=== PATIENT | female | born 1970 | race Caucasian/White ===

== ENCOUNTER → 2016-11-03 | Outpatient (REF) | payer OTHER ==
[~2016-11-03] MED LIST: ALBU17IN2 INH; HYDR-3713 PO; IBUP800T23 PO; PANT40TA2 PO; [UNRECOGNIZED DRUG - OTHER] PO
== END ==
LOC: M LAB REF 17:04
PROVIDERS: ATTEND Nurse Practitioner Family
DX: R30.0 Dysuria (principal)

== ENCOUNTER → 2016-12-26 | Outpatient (REF) | payer OTHER | LOC: M SMT 16:22 | PROVIDERS: ATTEND Nurse Practitioner Women's Health | DX: N39.0 Urinary tract infection, site not specified (principal) ==

== ENCOUNTER → 2016-12-28 | Outpatient (CLI) | payer OTHER ==
--- NOTE | 2016-12-28 11:37 | REP ---
Clinical: Recurrent urinary tract infection. Technique: Real time menchaca scale ultrasound examination using curved array transducer. Findings: The bilateral kidneys are normal in contour, size, echogenicity and reniform shape without hydronephrosis, nephrolithiasis, cystic or renal mass lesion. No perinephric fluid collections are identified. Right kidney measures 13.1 x 4.4 x 4.2 cm. Left kidney measures 11.7 x 6.2 x 5.4 cm with suggestions for extrarenal pelvis. The bladder is normal in appearance and bilateral ureteral jets are identified. Prevoid bladder measures 15.8 x 11.4 x 10.2 cm (950 ml). Postvoid bladder measures 9.5 x 8.5 x 5.2 cm (224 ml). Postvoid residual equals 24%. Impression: Normal bilateral kidneys. Increased postvoid residual volume to the bladder may warrant followup. Signed by Mauro Maldonado MD 12/28/2016 11:28 A
== END ==
LOC: M SMT 09:59
PROVIDERS: ATTEND Nurse Practitioner Women's Health
DX: N39.0 Urinary tract infection, site not specified (principal)

== ENCOUNTER → 2017-01-03 | Outpatient (REF) | payer OTHER ==
[2017-01-03 13:32] LABS: ANION GAP 10 MEQ/L (8-16); BLOOD UREA NITROGEN 19 MG/DL (7-18); CALCIUM LEVEL 9.7 MG/DL (8.5-10.1); CARBON DIOXIDE LEVEL 23 MEQ/L (21-32); CHLORIDE LEVEL 106 MEQ/L (98-107); CREATININE FOR GFR 0.96 MG/DL (0.55-1.02); GLOMERULAR FILTRATION RATE > 60.0 (>58); GLUCOSE, FASTING 100 MG/DL (70-105); POTASSIUM SERUM 4.2 MEQ/L (3.5-5.1); SODIUM LEVEL 139 MEQ/L (136-145)
== END ==
LOC: M LAB REF 12:04
PROVIDERS: ATTEND Nurse Practitioner Family
DX: E11.3293 Type 2 diabetes mellitus with mild nonproliferative diabetic retinopathy without macular edema, bilateral (principal); B02.29 Other postherpetic nervous system involvement

== ENCOUNTER → 2017-04-13 | Outpatient (REF) | payer OTHER ==
[~2017-04-13] MED LIST changes: +HYDR-3716 PO; +IBUP1TAB7 PO; -IBUP800T23 PO; +NORCOTAB PO
== END ==
LOC: M LAB REF 12:39
PROVIDERS: ATTEND Nurse Practitioner Family
DX: R35.0 Frequency of micturition (principal)

== ENCOUNTER 2017-06-25 13:08 | Emergency (ER) | payer OTHER ==
[~2017-06-25] VITALS: Ht 160 cm; Wt 195.0 kg
[~2017-06-25 13:08] MED LIST changes: -HYDR-3716 PO; -NORCOTAB PO
[2017-06-25] MEDS ORDERED: NORCO, ANEXSIA 5/325MG TABLET (HYDROcodone/ACETAMINOPHEN) PO ONE (14:30)
--- NOTE | 2017-06-25 14:50 | REP ---
RIGHT ANKLE SERIES: Four views of the right ankle are performed. There is a fracture of the anterior aspect of the calcaneus. The other visualized osseous structures appear intact. There is posterior calcaneal spurring. Ankle mortise is anatomic. IMPRESSION: Fracture anterior calcaneus. Signed by Ulises Chopra MD 06/25/2017 07:18 P
--- NOTE | 2017-06-25 14:51 | REP ---
RIGHT FOOT: Two views of the right foot are performed. There is a fracture of the anterior calcaneus. No other acute fracture or dislocation is seen of the visualized osseous structures. IMPRESSION: Fracture anterior aspect calcaneus. Signed by Ulises Chopra MD 06/25/2017 07:19 P
[2017-06-25] MEDS ORDERED: MORPHINE 10 MG/ML 1ML VIAL IM ONE (16:00)
[2017-06-25] MEDS ORDERED: NORCOTAB PO (16:22)
[2017-06-25 16:35] VITALS: BP 116/78
[2017-06-25] MEDS ORDERED: HYDR-3716 PO (16:36)
== END 2017-06-25 16:36 | disposition home or self-care (01) ==
LOC: M ED 13:08
DX: S92.024A Nondisplaced fracture of anterior process of right calcaneus, initial encounter for closed fracture (principal); X50.1XXA Overexertion from prolonged static or awkward postures, initial encounter; Y92.099 Unspecified place in other non-institutional residence as the place of occurrence of the external cause; Y93.9 Activity, unspecified; Y99.9 Unspecified external cause status; M54.9 Dorsalgia, unspecified; Z79.899 Other long term (current) drug therapy; Z91.030 Bee allergy status; Z88.0 Allergy status to penicillin

== ENCOUNTER → 2017-07-05 | Outpatient (CLI) | payer OTHER ==
[~2017-07-05] MED LIST changes: +HYDR-3716 PO; +NORCOTAB PO
--- NOTE | 2017-07-05 11:35 | REP ---
CT study of the right foot without contrast: History: Calcaneal fracture. Comparison foot and ankle radiographs are from June 25, 2017. Technique: Helical scanning is acquired. 2 mm contiguous axial images are generated. Coronal and sagittal multiplanar re-formation images are generated. CT findings: There is a severely comminuted, fracture principally occupying the anterior portion of the calcaneus. There is diastases of the subtalar joint due to impaction and fracture fragment displacement. The posterior calcaneus is essentially intact with a large Achilles calcaneal spur noted. There is a tiny bone fragment in the joint space between the cuboid and the anterior calcaneus. There is an associated chip fracture of the inferolateral aspect of the talus as well. The tibial plafond and talar dome are intact. No other talar fracture is seen. The fibula and tibia are intact at the ankle. No metatarsal fracture is seen. There is a bone island in the distal end of the first metatarsal. Impression: Severely comminuted impacted fracture of the anterior aspect of the calcaneus. There is a chip fracture of the inferolateral aspect of the talus. A fracture fragment is seen in the calcaneal cuboid joint space. Signed by Silvino Martinez MD 07/05/2017 01:25 P
== END ==
LOC: M RAD 09:47
PROVIDERS: ATTEND Orthopaedic Surgery
DX: S92.014A Nondisplaced fracture of body of right calcaneus, initial encounter for closed fracture (principal); X58.XXXA Exposure to other specified factors, initial encounter; Y92.89 Other specified places as the place of occurrence of the external cause; Y99.9 Unspecified external cause status; Y93.9 Activity, unspecified

== ENCOUNTER → 2017-11-07 | Outpatient (CLI) | payer OTHER | LOC: M RAD 13:57 | DX: M79.661 Pain in right lower leg (principal) | CPT/HCPCS: 93971 ==

== ENCOUNTER → 2017-11-13 | Outpatient (REF) | payer OTHER ==
[2017-11-13 14:27] LABS: APPEARANCE, URINE HAZY (CLEAR); BACTERIA, URINE AUTO 1+ (NEGATIVE); BILIRUBIN, URINE AUTO NEGATIVE (NEGATIVE); BLOOD, URINE BLOOD 1+ (NEGATIVE); COLOR, URINE YELLOW (YELLOW); GLUCOSE, URINE (UA) AUTO NEGATIVE (NEGATIVE); KETONE, URINE AUTO NEGATIVE (NEGATIVE); LEUKOCYTE ESTERASE, URINE AUTO 2+ (NEGATIVE); MUCUS, URINE SMALL (NEGATIVE); NITRITE, URINE AUTO NEGATIVE (NEGATIVE); PROTEIN, URINE AUTO NEGATIVE (NEGATIVE); RBC, URINE AUTO 1 /HPF (0-3); SPECIFIC GRAVITY URINE AUTO 1.013 (1.002-1.035); SQUAMOUS EPITHELIAL CELL UR AU 4 /HPF (0-6); UROBILINOGEN, URINE AUTO 0.2 mg/dL (0.0-2.0); WBC, URINE AUTO 8 /HPF (0-3)
== END ==
LOC: M SMT 13:20
DX: R39.15 Urgency of urination (principal)
CPT/HCPCS: 81001

== ENCOUNTER → 2018-02-28 | Outpatient (CLI) | payer MEDICAID ==
[~2018-02-28] MED LIST changes: -ALBU17IN2 INH; +CONRAY-43 43% 50ML VIAL (Q9960) As Ordered; -HYDR-3713 PO; -HYDR-3716 PO; -IBUP1TAB7 PO; +LIDOCAINE 1% MDV 20ML VIAL As Ordered; -NORCOTAB PO; -PANT40TA2 PO; +TRIAMCINOLONE ACETONIDE SUSP 40 MG/ML VIAL (J3301) As Ordered; -[UNRECOGNIZED DRUG - OTHER] PO
== END ==
LOC: M RADPRO 09:49
DX: M25.371 Other instability, right ankle (principal)
CPT/HCPCS: 20605

== ENCOUNTER → 2018-03-29 | Outpatient (CLI) | payer OTHER, MEDICAID | LOC: M PAIN 10:15 | DX: M53.3 Sacrococcygeal disorders, not elsewhere classified (principal); G89.29 Other chronic pain; J45.909 Unspecified asthma, uncomplicated; E11.3599 Type 2 diabetes mellitus with proliferative diabetic retinopathy without macular edema, unspecified eye; G43.909 Migraine, unspecified, not intractable, without status migrainosus; I10 Essential (primary) hypertension; K76.0 Fatty (change of) liver, not elsewhere classified; Z79.899 Other long term (current) drug therapy; Z88.0 Allergy status to penicillin; Z88.8 Allergy status to other drugs, medicaments and biological substances; Z91.030 Bee allergy status; Z87.891 Personal history of nicotine dependence | CPT/HCPCS: G0463 ==

== ENCOUNTER 2018-04-02 16:02 | Emergency (ER) | payer OTHER, MEDICAID ==
[2018-04-02 16:43] LABS: BASO # 0.1 10^3/uL (0.0-0.2); BASO % 0.5 % (0.0-1.0); EOS # 0.1 10^3/uL (0.0-0.50); EOS % 1.3 % (0.0-3.0); HEMOGLOBIN 14.8 g/dl (12.0-15.5); IMMATURE GRANULOCYTE % 0.4 % (0-3.0); LYMPH # 2.8 10^3/uL (1.5-4.5); LYMPH % 28.7 % (24.0-44.0); MEAN CORPUSCULAR HEMOGLOBIN 30.7 pg (27.0-33.0); MEAN CORPUSCULAR HGB CONC 34.4 g/dl (32.0-36.5); MEAN CORPUSCULAR VOLUME 89.2 fl (80.0-96.0); MONO # 0.7 10^3/uL (0.0-0.8); MONO % 6.7 % (0.0-5.0); NEUTROPHILS % 62.4 % (36.0-66.0); PLATELET COUNT, AUTOMATED 304 10^3/uL (150-450); RED BLOOD COUNT 4.82 10^6/uL (4.00-5.40); RED CELL DISTRIBUTION WIDTH 13.2 % (11.5-14.5); WHITE BLOOD COUNT 9.7 10^3/uL (4.0-10.0)
[2018-04-02 17:39] LABS: ANION GAP 10 MEQ/L (8-16); BLOOD UREA NITROGEN 14 MG/DL (7-18); CALCIUM LEVEL 9.4 MG/DL (8.5-10.1); CARBON DIOXIDE LEVEL 24 MEQ/L (21-32); CHLORIDE LEVEL 107 MEQ/L (98-107); CK-MB VALUE MASS < 1.0 NG/ML (<3.6); CPK CREATINE PHOSPHOKINASE 57 U/L (26-192); GLOMERULAR FILTRATION RATE > 60.0 (>58); GLUCOSE, FASTING 94 MG/DL (70-100); MB/CK RELATIVE INDEX 1.75 (< OR =4); POTASSIUM SERUM 3.7 MEQ/L (3.5-5.1); SODIUM LEVEL 141 MEQ/L (136-145); TROPONIN I < 0.02 NG/ML (< 0.10)
[2018-04-02] MEDS: NS 1,000 ML IV (17:46)
[2018-04-02] MEDS: diphenhydrAMINE INJ 50MG/ML VIAL (J1200) IV (17:46)
[2018-04-02] MEDS: MORPHINE 4 MG/ML 1ML VIAL/SYRINGE (J2270) IV (17:46)
[2018-04-02 17:55] LABS: D-DIMER QUANT < 270.0 ng/ml (<500)
== END 2018-04-02 19:40 | disposition home or self-care (01) ==
LOC: M ED 16:02
DX: R07.89 Other chest pain (principal); R06.02 Shortness of breath; M54.9 Dorsalgia, unspecified; J45.909 Unspecified asthma, uncomplicated; K21.9 Gastro-esophageal reflux disease without esophagitis; Z88.0 Allergy status to penicillin; Z88.8 Allergy status to other drugs, medicaments and biological substances; Z79.899 Other long term (current) drug therapy
CPT/HCPCS: J2270

== ENCOUNTER → 2018-04-17 | Outpatient (CLI) | payer OTHER, MEDICAID | LOC: M PAIN 14:00 | DX: M53.3 Sacrococcygeal disorders, not elsewhere classified (principal); J45.909 Unspecified asthma, uncomplicated; Z79.891 Long term (current) use of opiate analgesic; Z79.899 Other long term (current) drug therapy; Z91.030 Bee allergy status; Z88.8 Allergy status to other drugs, medicaments and biological substances; Z88.0 Allergy status to penicillin; Z90.710 Acquired absence of both cervix and uterus; Z87.891 Personal history of nicotine dependence | CPT/HCPCS: G0463 ==

== ENCOUNTER → 2018-05-14 | Outpatient (CLI) | payer OTHER, MEDICAID | LOC: M PAIN 14:45 | DX: M46.1 Sacroiliitis, not elsewhere classified (principal); G89.29 Other chronic pain; E11.3299 Type 2 diabetes mellitus with mild nonproliferative diabetic retinopathy without macular edema, unspecified eye; J45.909 Unspecified asthma, uncomplicated; G43.909 Migraine, unspecified, not intractable, without status migrainosus; I10 Essential (primary) hypertension; K76.9 Liver disease, unspecified; E66.01 Morbid (severe) obesity due to excess calories; Z68.35 Body mass index [BMI] 35.0-35.9, adult; Z79.899 Other long term (current) drug therapy; Z88.0 Allergy status to penicillin; Z88.8 Allergy status to other drugs, medicaments and biological substances; Z91.030 Bee allergy status; Z87.891 Personal history of nicotine dependence | CPT/HCPCS: G0463 ==

== ENCOUNTER → 2018-06-14 | Outpatient (CLI) | payer OTHER, MEDICAID | LOC: M PAIN 11:15 | DX: M53.3 Sacrococcygeal disorders, not elsewhere classified (principal); G89.29 Other chronic pain; J45.909 Unspecified asthma, uncomplicated; E11.3319 Type 2 diabetes mellitus with moderate nonproliferative diabetic retinopathy with macular edema, unspecified eye; G43.909 Migraine, unspecified, not intractable, without status migrainosus; I10 Essential (primary) hypertension; K76.9 Liver disease, unspecified; Z79.891 Long term (current) use of opiate analgesic; Z79.899 Other long term (current) drug therapy; Z88.0 Allergy status to penicillin; Z88.8 Allergy status to other drugs, medicaments and biological substances; Z91.030 Bee allergy status; Z87.891 Personal history of nicotine dependence | CPT/HCPCS: G0463 ==

== ENCOUNTER → 2018-07-12 | Outpatient (CLI) | payer OTHER, MEDICAID | LOC: M PAIN 09:45 | DX: M53.3 Sacrococcygeal disorders, not elsewhere classified (principal); G89.29 Other chronic pain; E11.9 Type 2 diabetes mellitus without complications; J45.909 Unspecified asthma, uncomplicated; G43.909 Migraine, unspecified, not intractable, without status migrainosus; I10 Essential (primary) hypertension; K76.9 Liver disease, unspecified; Z79.891 Long term (current) use of opiate analgesic; Z79.899 Other long term (current) drug therapy; Z88.0 Allergy status to penicillin; Z88.8 Allergy status to other drugs, medicaments and biological substances; Z91.030 Bee allergy status; Z87.891 Personal history of nicotine dependence | CPT/HCPCS: G0463 ==

== ENCOUNTER → 2018-08-03 | Outpatient (CLI) | payer OTHER | LOC: M RADPRO 11:07 | DX: M19.171 Post-traumatic osteoarthritis, right ankle and foot (principal) | CPT/HCPCS: 20605 ==

== ENCOUNTER → 2018-08-13 | Outpatient (CLI) | payer OTHER, MEDICAID | LOC: M PAIN 11:15 | DX: M53.3 Sacrococcygeal disorders, not elsewhere classified (principal); E66.9 Obesity, unspecified; J45.909 Unspecified asthma, uncomplicated; M54.5 Low back pain; G43.909 Migraine, unspecified, not intractable, without status migrainosus; I10 Essential (primary) hypertension; H40.9 Unspecified glaucoma; E11.319 Type 2 diabetes mellitus with unspecified diabetic retinopathy without macular edema; Z68.35 Body mass index [BMI] 35.0-35.9, adult; K75.9 Inflammatory liver disease, unspecified; Z79.891 Long term (current) use of opiate analgesic; Z87.891 Personal history of nicotine dependence; Z88.0 Allergy status to penicillin; Z88.8 Allergy status to other drugs, medicaments and biological substances; Z91.030 Bee allergy status; Z79.899 Other long term (current) drug therapy | CPT/HCPCS: G0463 ==

== ENCOUNTER → 2018-09-22 | Outpatient (CLI) | payer OTHER ==
[~2018-09-22] MED LIST changes: +ALBU17IN2 INH; -CONRAY-43 43% 50ML VIAL (Q9960) As Ordered; +CYMB1CAP5 PO; +HYDR-3713 PO; +HYDR-3716 PO; +IBUP1TAB7 PO; -LIDOCAINE 1% MDV 20ML VIAL As Ordered; +NORCOTAB PO; +PANT40TA3 PO; +TRAM50TA2 PO; -TRIAMCINOLONE ACETONIDE SUSP 40 MG/ML VIAL (J3301) As Ordered; +[UNRECOGNIZED DRUG - OTHER] PO
--- NOTE | 2018-09-22 12:47 | REP ---
Clinical: Chest pain/pressure . Comparison: 04/02/2018 . Technique: PA and lateral. Findings: The mediastinum and cardiac silhouette are normal. The lung escalona are clear and without acute consolidation, effusion, or pneumothorax. The skeletal structures are intact and normal. Impression: 1. No acute cardiopulmonary process. Electronically Signed by Mauro Maldonado MD 09/22/2018 12:38 P
== END ==
LOC: M LRY 12:04
PROVIDERS: ATTEND Physician Assistant
DX: R07.89 Other chest pain (principal)

== ENCOUNTER → 2018-09-22 | Outpatient (REF) | payer OTHER, MEDICAID | LOC: M SFHCLERA 11:40 | PROVIDERS: ATTEND Physician Assistant | DX: J02.9 Acute pharyngitis, unspecified (principal) ==

== ENCOUNTER → 2018-10-12 | Outpatient (CLI) | payer OTHER, MEDICAID ==
--- NOTE | 2018-10-30 02:22 | ECWPNPC ---
PATIENT NAME: BRUNO JOHN : 1970 GENDER: FEMALE VISIT DATE: 10/12/2018 DISCHARGE DATE: 10/12/18 1142 VISIT LOCKED DATE TIME: PHYSICIAN: TALITA ARGUETA RESOURCE: TALITA ARGUETA REASON FOR APPOINTMENT 1. MED MANAGEMENT HISTORY OF PRESENT ILLNESS HISTORY OF PRESENT ILLNESS: HERE FOR F/U OF CHRONIC LOW BACK PAIN .RATING PAIN VAS 10/10.FINDS CURRENT MEDICATION EFFECTIVE AT REDUCING PAIN AND KEEPING HER COMFORTABLE.USING HYDROCODONE 5/325 Q6PRN.DESCRIBES LOW BACK PAIN CONSTANT AND SHARP. PAIN THE PATIENT DESCRIBES THE PAIN... FALL RISK SCREENING: SCREENING :NO FALLS IN THE PAST YEAR CURRENT MEDICATIONS TAKING HYDROXYZINE HCL 10 MG TABLET ORALLY TAKING PANTOPRAZOLE SODIUM 40 MG TABLET DELAYED RELEASE 1 TABLET ORALLY ONCE A DAY TAKING VENTOLIN HFA 108 (90 BASE) MCG/ACT AEROSOL SOLUTION 2 PUFFS INHALATION EVERY 4 HRS NEEDED, NOTES: PRN TAKING NORCO 5-325 MG TABLET 1 TABLET NEEDED ORALLY Q6H PRN MDD4 110 TAB SHOULD LAST 30 DAYS, NOTES: DUPLICATE NOT-TAKING PREDNISONE 10 MG TABLET 4 TABS QDAY X 3, 3 TAB QDAY X 3, 2 TABS QDAY X 3, 1 TAB QDAY X 3 DAYS ORALLY DIRECTED NOT-TAKING FLONASE 50 MCG/ACT SUSPENSION 1 SPRAY IN EACH NOSTRIL NASALLY BID NOT-TAKING NORCO 5-325 MG TABLET 1 TABLET NEEDED ORALLY EVERY 6 HRS PRN PAIN MDD4 __#100 TAB SHOULD LAST 30 DAYS MEDICATION LIST REVIEWED AND RECONCILED WITH THE PATIENT PAST MEDICAL HISTORY UTI OBESITY ASTHMA DM, TYPE II LOW BACK PAIN MIGRAINES HTN CHRONIC NONALCOHOLIC LIVER DISEASE NONPROLIFERATIVE DIABETIC RETINOPATHY IC GLAUCOMA ALLERGIES BEE STINGS: ANAPHYLAXIS: ALLERGY PENICILLIN (FOR ALLERGIES USE ONLY): ANAPHYLAXIS: ALLERGY CORTIZONE SHOTS: ANAPHYLAXIS: ALLERGY BELBUCA: MIGRAINE AND VOMITING: SIDE EFFECTS SURGICAL HISTORY PARTIAL HYSTERECTOMY 1994 C SECTION 2000 HYSTERECTOMY 2001 COLONOSCOPY 1992 CYSTOSCOPY AROUND ENDOSCOPY FAMILY HISTORY FATHER: ALIVE, HTN, [place], KIDNEY ISSUES MOTHER: ALIVE, HTN, DIABETES, KIDNEY DISEASE, OSTEOPOROSIS SIBLINGS: ALIVE, HTN- BROTHER 1 BROTHER(S) . 2 SON(S) - HEALTHY. SOCIAL HISTORY GENERAL: TOBACCO USE ARE YOU A:FORMER SMOKER HOW LONG HAS IT BEEN SINCE YOU LAST SMOKED?> 10 YEARS ALCOHOL SCREENING POINTS: 0, INTERPRETATION: NEGATIVE. RECREATIONAL DRUG USE DRUG USE?NO CAFFEINE 1 CUP/DAY. SEXUAL HX HAD SEX IN THE LAST 12 MONTHS (VAGINAL, ORAL, OR ANAL)?: NO, HAVE YOU EVER HAD AN STD?: YES, CHLAMYDIA?: YES. DRUZE NO BUDDHIST BELIEFS THAT WOULD IMPACT HEALTH CARE. LANGUAGE CHINESE. LEARNING BARRIERS / SPECIAL NEEDS BARRIERS TO LEARNING?NO HEARING IMPAIRED?NO VISION IMPAIRED?NO COGNITIVELY IMPAIRED?NO READINESS TO LEARN?YES LEARNING PREFERENCES?NO LEARNING CAPABILITIES PRESENT?YES EMOTIONAL BARRIERS?NO SPECIAL DEVICES?NO PERSONAL LINES INSURANCE AGENT NEEDED?NO DOMESTIC VIOLENCE NONE. 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 EXERCISE: DAILY. MARITAL STATUS: . OTHERS AT HOME: SONS. PAIN CLINIC PFS, CLERGY, PUBLIC HEALTH REFERRALS HAS THE PATIENT BEEN EDUCATED REGARDING HIS/HER PLAN OF CARE?YES HAS THE PATIENT BEEN EDUCATED REGARDING PAIN, THE RISK FOR PAIN, THE IMPORTANCE OF EFFECTIVE PAIN MANAGEMENT, AND THE PAIN ASSESSMENT PROCESS?YES ADVANCE DIRECTIVE ADVANCE DIRECTIVE DISCUSSED WITH PATIENT:YES DECLINED HOSPITALIZATION/MAJOR DIAGNOSTIC PROCEDURE SURGERY RELATED REVIEW OF SYSTEMS REVIEWED BY: PROVIDER: TALITA ZABALA . CONSTITUTIONAL: ANY CHANGE IN YOUR MEDICAL CONDITION? NO . CHILLS NO . FEVER NO . INFECTION: DO YOU HAVE NEW INFECTIONS? NO . DO YOU HAVE HISTORY OF MRSA? NO . MUSCULOSKELETAL: ANY NEW PATTERNS OF PAIN OR NUMBNESS? YESRIGHT UPPER LEG NUMBNESS . GASTROENTEROLOGY: ANY NEW CHANGE IN BOWEL CONTROL? NO . GENITOURINARY: ANY NEW CHANGE IN BLADDER CONTROL? NO . IS THERE A CHANCE YOU COULD BE ? NO . HEMATOLOGY/LYMPH: DO YOU TAKE ANY BLOOD THINNERS? (FOR EXAMPLE- COUMADIN, PLAVIX, AGGRENOX, PLATEL, PRADAXA, OR XARELTO) NO . WHEN WAS YOUR LAST DOSE? DATE: TIME: . NEUROLOGY: HAVE YOU FALLEN IN THE PAST 6 MONTHS? NO . ANY NEW EXTREMITY NUMBNESS OR WEAKNESS? NO . CARDIOLOGY: DO YOU HAVE A PACEMAKER OR DEFIBRILLATOR? NO . RESPIRATORY: HAVE YOU BEEN SICK IN THE PAST WEEK? YES, URI RESOLVING . FEVER YES . FLU LIKE SYMPTOMS? NO . COUGH YES, NON-PRODUCTIVE . INTEGUMENTARY: DO YOU HAVE ANY RASHES OR OPEN SORES? NO . ALLERGIC/IMMUNO: ARE YOU ALLERGIC TO SHELLFISH OR IV DYE? NO . ANY NEW ALLERGIES? NO . PSYCHIATRIC: DO YOU HAVE THOUGHTS OF HURTING YOURSELF OR SOMEONE ELSE? NO . ARE YOU ABUSED, NEGLECTED, OR IN AN UNSAFE ENVIRONMENT? NO . ENDOCRINOLOGY: ARE YOU DIABETIC? YES . OTHER: DO YOU NEED ANY PRESCRIPTIONS? YES, NORCO . IF YES, PLEASE LIST: ____ . ANY NEW PROBLEMS WITH YOUR MEDICATIONS? NO . WHEN DID YOU LAST EAT? ____ . WHEN DID YOU LAST DRINK? ____ . WHAT DID YOU LAST DRINK? ____ . NAME OF PERSON DRIVING YOU HOME? ____ . DO YOU HAVE ANY OTHER QUESTIONS OR CONCERNS NO . VITAL SIGNS WT 210.6 LBS, HT 63.5 IN, BMI 36.72 INDEX, BP 174/97 MM HG, HR 72 /MIN, RR 18 /MIN, TEMP 97.7 F, OXYGEN SAT % 99%, NA INITIALS SC 10:58, REVIEWED BY: BARBARA. EXAMINATION GENERAL EXAMINATION: GENERAL APPEARANCE:AWAKE,ALERT ,PLEAASANT . PSYCHAFFECT NORMAL . LUNGS:LUNG DOSHI ARE CLEAR TO AUSCULTATION BILATERALLY. GOOD MOVEMENT OF AIR . HEART:S1, S2 IN A REGULAR RATE AND RHYTHM. NO SIGNIFICANT MURMURS, RUBS OR GALLOPS NOTED . ASSESSMENTS SACROILIAC JOINT PAIN - M53.3 (PRIMARY) CHRONIC PRESCRIPTION OPIATE USE - Z79.891 TREATMENT SACROILIAC JOINT PAIN REFILL NORCO TABLET, 5-325 MG, 1 TABLET NEEDED, ORALLY, Q6H PRN MDD4 110 TAB SHOULD LAST 30 DAYS, 30 DAY(S), 110, REFILLS 0, NOTES: DUPLICATE NOTES: ISTOP REGISTRY REVIEWED AND DEMONSTRATES COMPLLIANCE. (REF #[id number] ) BRINGS IN MEDICATIONS WHICH IS APPROPRIATE FOR WHAT WAS DISPENSED. RECENT URINE TOXICOLOGY REVIEWED. NO UNAUTHORIZED MEDICATIONS. NO ILLICIT SUBSTANCES AND PRESCRIBED MEDICATIONS WERE PRESENT. URINE TOX TODAY, RISKS AND BENEFITS OF NARCOTIC/OPIOD MEDICATIONS WERE REVIEWED WITH PATIENT - THIS INCLUDES BUT IS NOT LIMITED TO RISK OF DEPENDANCE/DEVELOPMENT OF ADDICTION, MOOD DISTURBANCE AND DEPRESSION, OSTEOPOROSIS, HORMONAL AND LABIDAL CHANGES, RESPIRATORY DEPRESSION AND . PATIENT IS ADVISED NOT TO DRIVE OR DRINK ALCOHOL WHILE ON THESE MEDICATIONS. PROCEDURE CODES FA211 ESTABILISHED PATIENT [facility] CHARGE DISPOSITION & COMMUNICATION FOLLOW UP 2 MONTHS ELECTRONICALLY SIGNED BY SAGRARIO SIMONS ON 10/29/2018 AT 09:06 AM EST DISCLAIMER : THIS IS A VISIT SUMMARY EXTRACTED FROM THE [employer] CHART. IT IS NOT A COPY OF THE [employer] PROGRESS NOTE. DUYEN
== END ==
LOC: M PAIN 11:00
PROVIDERS: ATTEND Nurse Practitioner Family
DX: M53.3 Sacrococcygeal disorders, not elsewhere classified (principal); G89.29 Other chronic pain; E11.3299 Type 2 diabetes mellitus with mild nonproliferative diabetic retinopathy without macular edema, unspecified eye; G43.909 Migraine, unspecified, not intractable, without status migrainosus; I10 Essential (primary) hypertension; J45.909 Unspecified asthma, uncomplicated; K76.9 Liver disease, unspecified; E66.01 Morbid (severe) obesity due to excess calories; Z68.36 Body mass index [BMI] 36.0-36.9, adult; Z79.899 Other long term (current) drug therapy; Z88.0 Allergy status to penicillin; Z88.8 Allergy status to other drugs, medicaments and biological substances; Z91.030 Bee allergy status; Z87.891 Personal history of nicotine dependence

== ENCOUNTER 2018-12-21 13:34 | Emergency (ER) | payer MEDICAID, OTHER ==
[~2018-12-21] VITALS: Ht 160 cm; Wt 90.9 kg
[~2018-12-21 13:34] MED LIST changes: +HYDR-3715 PO; -NORCOTAB PO
[2018-12-21] MEDS ORDERED: TESS100C PO (15:37)
[2018-12-21] MEDS ORDERED: BACT800T5 PO (15:38)
[2018-12-21 15:48] VITALS: BP 130/84
--- NOTE | 2018-12-21 16:44 | REP ---
CHEST, TWO VIEWS: There is no evidence of acute infiltrate. No pleural effusion is seen. The heart is normal in size. The mediastinal silhouette is unremarkable. The visualized osseous structures are intact. IMPRESSION: No acute pulmonary disease. Electronically Signed by Ulises Chopra MD 12/21/2018 08:00 P
[2019-01-01] MEDS ORDERED: HYDR-643 PO (09:08)
[2019-01-01] MEDS ORDERED: TIZA4CAP PO (09:08)
[2019-01-01] MEDS ORDERED: NAPR-855 PO (09:08)
[2019-01-01] MEDS ORDERED: PANT40TA3 PO (09:13)
== END 2018-12-21 15:54 | disposition home or self-care (01) ==
LOC: M ED 13:34
DX: J06.9 Acute upper respiratory infection, unspecified (principal); N30.00 Acute cystitis without hematuria; R51 Headache; J45.909 Unspecified asthma, uncomplicated; K21.9 Gastro-esophageal reflux disease without esophagitis; F41.9 Anxiety disorder, unspecified; M54.9 Dorsalgia, unspecified; Z79.899 Other long term (current) drug therapy; Z88.0 Allergy status to penicillin; Z88.8 Allergy status to other drugs, medicaments and biological substances; Z91.030 Bee allergy status

== ENCOUNTER → 2019-01-08 | Outpatient (CLI) | payer OTHER, MEDICAID ==
[~2019-01-08] MED LIST changes: +BACT800T5 PO; +HYDR-643 PO; +NAPR-855 PO; +TESS100C PO; +TIZA4CAP PO
--- NOTE | 2019-01-23 01:05 | ECWPNPC ---
PATIENT NAME: BRUNO JOHN : 1970 GENDER: FEMALE VISIT DATE: 01/08/2019 DISCHARGE DATE: 01/08/19 1154 VISIT LOCKED DATE TIME: PHYSICIAN: TALITA ARGUETA RESOURCE: TALITA ARGUETA REASON FOR APPOINTMENT 1. MED MANAGEMENT HISTORY OF PRESENT ILLNESS HISTORY OF PRESENT ILLNESS: HERE FOR F/U OF CHRONIC LOW BACK PAIN .RATING PAIN VAS 10/10.FINDS CURRENT MEDICATION EFFECTIVE AT REDUCING PAIN AND KEEPING HER COMFORTABLE.USING HYDROCODONE 5/325 Q6PRN.DESCRIBES LOW BACK PAIN CONSTANT AND SHARP. PAIN THE PATIENT DESCRIBES THE PAIN... THE PATIENT DESCRIBES THE PAIN... PAIN THE PATIENT DESCRIBES THE PAIN... THE PATIENT DESCRIBES THE PAIN... FALL RISK SCREENING: SCREENING :NO FALLS REPORTED IN THE LAST YEAR CURRENT MEDICATIONS TAKING HYDROXYZINE HCL 10 MG TABLET ORALLY TAKING PANTOPRAZOLE SODIUM 40 MG TABLET DELAYED RELEASE 1 TABLET ORALLY ONCE A DAY TAKING VENTOLIN HFA 108 (90 BASE) MCG/ACT AEROSOL SOLUTION 2 PUFFS INHALATION EVERY 4 HRS NEEDED, NOTES: PRN TAKING NORCO 5-325 MG TABLET 1 TABLET NEEDED ORALLY Q6H PRN MDD4 110 TAB SHOULD LAST 30 DAYS NOT-TAKING PREDNISONE 10 MG TABLET 4 TABS QDAY X 3, 3 TAB QDAY X 3, 2 TABS QDAY X 3, 1 TAB QDAY X 3 DAYS ORALLY DIRECTED NOT-TAKING FLONASE 50 MCG/ACT SUSPENSION 1 SPRAY IN EACH NOSTRIL NASALLY BID NOT-TAKING NORCO 5-325 MG TABLET 1 TABLET NEEDED ORALLY EVERY 6 HRS PRN PAIN MDD4 __#100 TAB SHOULD LAST 30 DAYS MEDICATION LIST REVIEWED AND RECONCILED WITH THE PATIENT PAST MEDICAL HISTORY UTI OBESITY ASTHMA DM, TYPE II LOW BACK PAIN MIGRAINES HTN CHRONIC NONALCOHOLIC LIVER DISEASE NONPROLIFERATIVE DIABETIC RETINOPATHY IC GLAUCOMA ALLERGIES BEE STINGS: ANAPHYLAXIS - ALLERGY PENICILLIN (FOR ALLERGIES USE ONLY): ANAPHYLAXIS - ALLERGY CORTIZONE SHOTS: ANAPHYLAXIS - ALLERGY BELBUCA: MIGRAINE AND VOMITING - SIDE EFFECTS IV DYE SURGICAL HISTORY PARTIAL HYSTERECTOMY 1994 C SECTION 2000 HYSTERECTOMY 2001 COLONOSCOPY 1992 CYSTOSCOPY AROUND -2005 ENDOSCOPY FAMILY HISTORY FATHER: ALIVE, HTN, [place], KIDNEY ISSUES, DIAGNOSED WITH HYPERTENSION MOTHER: ALIVE, HTN, DIABETES, KIDNEY DISEASE, OSTEOPOROSIS SIBLINGS: ALIVE, HTN- BROTHER 1 BROTHER(S) . 2 SON(S) - HEALTHY. SOCIAL HISTORY GENERAL: TOBACCO USE ARE YOU A:FORMER SMOKER HOW LONG HAS IT BEEN SINCE YOU LAST SMOKED?> 10 YEARS LATEX QUESTIONNAIRE LATEX ALLERGY : HAVE YOU EVER DEVELOPED ANY TYPE OF REACTION AFTER HANDLING LATEX PRODUCTS SUCH RUBBER GLOVES, CONDOMS, DIAPHRAGMS, BALLOONS, SOCKS, OR UNDERWEAR?NO LATEX ALLERGY : HAVE YOU EVER DEVELOPED ANY TYPE OF REACTION DURING OR AFTER DENTAL APPOINTMENT, VAGINAL/RECTAL EXAMINATION, SURGICAL PROCEDURE, OR ANY OTHER EXPOSURE?NO LATEX RISK : HAVE YOU EVER HAD ANY DIFFICULTY BREATHING OR HIVES AFTER EATING OR HANDLING ANY FRUITS, OR VEGETABLES; SUCH KIWI, BANANAS, STONE FRUITS, OR CHESTNUTSNO LATEX RISK : DO YOU HAVE A PREVIOUS PERSONAL HISTORY OF MORE THAN NINE SURGERIES, SPINA BIFIDA, OR REPEATED CATHERTIZATIONS? NO LATEX RISK : ARE YOU FREQUENTLY EXPOSED TO LATEX PRODUCTS IN YOUR OCCUPATION?NO DATE ASKED : 01/08/2019 ALCOHOL SCREENING POINTS: 0, INTERPRETATION: NEGATIVE. RECREATIONAL DRUG USE DRUG USE?NO CAFFEINE 1 CUP/DAY. SEXUAL HX HAD SEX IN THE LAST 12 MONTHS (VAGINAL, ORAL, OR ANAL)?: NO, HAVE YOU EVER HAD AN STD?: YES, CHLAMYDIA?: YES. ZOROASTRIANISM NO HINDU BELIEFS THAT WOULD IMPACT HEALTH CARE. LANGUAGE KINYARWANDA. LEARNING BARRIERS / SPECIAL NEEDS BARRIERS TO LEARNING?NO HEARING IMPAIRED?NO VISION IMPAIRED?NO COGNITIVELY IMPAIRED?NO READINESS TO LEARN?YES LEARNING PREFERENCES?NO LEARNING CAPABILITIES PRESENT?YES EMOTIONAL BARRIERS?NO SPECIAL DEVICES?NO FIBER OPTICS ENGINEER NEEDED?NO DOMESTIC VIOLENCE NONE. 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 EXERCISE: DAILY. MARITAL STATUS: . OTHERS AT HOME: SONS. PAIN CLINIC PFS, CLERGY, PUBLIC HEALTH REFERRALS HAS THE PATIENT BEEN EDUCATED REGARDING HIS/HER PLAN OF CARE?YES HAS THE PATIENT BEEN EDUCATED REGARDING PAIN, THE RISK FOR PAIN, THE IMPORTANCE OF EFFECTIVE PAIN MANAGEMENT, AND THE PAIN ASSESSMENT PROCESS?YES ADVANCE DIRECTIVE ADVANCE DIRECTIVE DISCUSSED WITH PATIENT:YES DECLINED HCP INFO AND ASSISTANCE AT THIS TIME 01/08/19 REVIEWED WITH PT 01/08/19 1128 BV. HOSPITALIZATION/MAJOR DIAGNOSTIC PROCEDURE SURGERY RELATED REVIEW OF SYSTEMS REVIEWED BY: PROVIDER: TALITA ZABALA . CONSTITUTIONAL: ANY CHANGE IN YOUR MEDICAL CONDITION? NO . CHILLS NO . FEVER NO . INFECTION: DO YOU HAVE NEW INFECTIONS? YES, PT WAS TREATED WITH MEDICATION 2 WEEK AGO FOR UTI AND THE FLU. STATES SYMPTOMS HAVE RESOLVED . DO YOU HAVE HISTORY OF MRSA? NO . MUSCULOSKELETAL: ANY NEW PATTERNS OF PAIN OR NUMBNESS? NO . GASTROENTEROLOGY: ANY NEW CHANGE IN BOWEL CONTROL? NO . GENITOURINARY: ANY NEW CHANGE IN BLADDER CONTROL? NO . IS THERE A CHANCE YOU COULD BE ? NO . HEMATOLOGY/LYMPH: DO YOU TAKE ANY BLOOD THINNERS? (FOR EXAMPLE- COUMADIN, PLAVIX, AGGRENOX, PLATEL, PRADAXA, OR XARELTO) NO . WHEN WAS YOUR LAST DOSE? DATE: TIME: . NEUROLOGY: HAVE YOU FALLEN IN THE PAST 12 MONTHS? NO . ANY NEW EXTREMITY NUMBNESS OR WEAKNESS? NO . CARDIOLOGY: DO YOU HAVE A PACEMAKER OR DEFIBRILLATOR? NO . RESPIRATORY: HAVE YOU BEEN SICK IN THE PAST WEEK? NO . FEVER NO . FLU LIKE SYMPTOMS? NO . COUGH NO . INTEGUMENTARY: DO YOU HAVE ANY RASHES OR OPEN SORES? NO . ALLERGIC/IMMUNO: ARE YOU ALLERGIC TO IV DYE? NO . ANY NEW ALLERGIES? NO . PSYCHIATRIC: DO YOU HAVE THOUGHTS OF HURTING YOURSELF OR SOMEONE ELSE? NO . ARE YOU ABUSED, NEGLECTED, OR IN AN UNSAFE ENVIRONMENT? NO . ENDOCRINOLOGY: ARE YOU DIABETIC? YES, DIET CONTROLLED . OTHER: DO YOU NEED ANY PRESCRIPTIONS? YES, NORCO . IF YES, PLEASE LIST: ____ . ANY NEW PROBLEMS WITH YOUR MEDICATIONS? NO . WHEN DID YOU LAST EAT? ____ . WHEN DID YOU LAST DRINK? ____ . WHAT DID YOU LAST DRINK? ____ . NAME OF PERSON DRIVING YOU HOME? ____ . DO YOU HAVE ANY OTHER QUESTIONS OR CONCERNS NO . VITAL SIGNS WT 214.2 LBS, HT 63.5 IN, BMI 37.34 INDEX, BP 169/107 MM HG, REPEAT BP 150/90MANUL, HR 92 /MIN, RR 18 /MIN, TEMP 96.2 F, OXYGEN SAT % 97%, NA INITIALS SC 11:02, REVIEWED BY: BV. EXAMINATION GENERAL EXAMINATION: GENERAL APPEARANCE:AWAKE,ALERT ,PLEAASANT . PSYCHAFFECT NORMAL . LUNGS:LUNG DOSHI ARE CLEAR TO AUSCULTATION BILATERALLY. GOOD MOVEMENT OF AIR . HEART:S1, S2 IN A REGULAR RATE AND RHYTHM. NO SIGNIFICANT MURMURS, RUBS OR GALLOPS NOTED . ASSESSMENTS SACROILIAC JOINT PAIN - M53.3 TREATMENT SACROILIAC JOINT PAIN REFILL NORCO TABLET, 5-325 MG, 1 TABLET NEEDED, ORALLY, Q6H PRN MDD4 110 TAB SHOULD LAST 30 DAYS, 30 DAY(S), 110, REFILLS 0 NOTES: ISTOP REGISTRY REVIEWED AND DEMONSTRATES COMPLLIANCE. (REF # [id number] ) RECENT URINE TOXICOLOGY REVIEWED. NO UNAUTHORIZED MEDICATIONS. NO ILLICIT SUBSTANCES AND PRESCRIBED MEDICATIONS WERE PRESENT. , RISKS AND BENEFITS OF NARCOTIC/OPIOD MEDICATIONS WERE REVIEWED WITH PATIENT - THIS INCLUDES BUT IS NOT LIMITED TO RISK OF DEPENDANCE/DEVELOPMENT OF ADDICTION, MOOD DISTURBANCE AND DEPRESSION, OSTEOPOROSIS, HORMONAL AND LABIDAL CHANGES, RESPIRATORY DEPRESSION AND . PATIENT IS ADVISED NOT TO DRIVE OR DRINK ALCOHOL WHILE ON THESE MEDICATIONS. PROCEDURE CODES FA211 ESTABILISHED PATIENT [facility] CHARGE DISPOSITION & COMMUNICATION FOLLOW UP 25 DAYS ELECTRONICALLY SIGNED BY SAGRARIO SIMONS ON 01/22/2019 AT 02:33 PM EDT DISCLAIMER : THIS IS A VISIT SUMMARY EXTRACTED FROM THE [employer] CHART. IT IS NOT A COPY OF THE [employer] PROGRESS NOTE. DUYEN
== END ==
LOC: M PAIN 11:00
PROVIDERS: ATTEND Nurse Practitioner Family
DX: M53.3 Sacrococcygeal disorders, not elsewhere classified (principal); G89.29 Other chronic pain; J45.909 Unspecified asthma, uncomplicated; E11.3299 Type 2 diabetes mellitus with mild nonproliferative diabetic retinopathy without macular edema, unspecified eye; G43.909 Migraine, unspecified, not intractable, without status migrainosus; I10 Essential (primary) hypertension; Z87.891 Personal history of nicotine dependence; Z88.0 Allergy status to penicillin; Z88.5 Allergy status to narcotic agent; Z91.030 Bee allergy status; Z91.041 Radiographic dye allergy status; Z79.899 Other long term (current) drug therapy

== ENCOUNTER → 2019-02-13 | Outpatient (CLI) | payer OTHER, MEDICAID ==
--- NOTE | 2019-03-05 00:47 | ECWPNPC ---
PATIENT NAME: BRUNO JOHN : 1970 GENDER: FEMALE VISIT DATE: 02/13/2019 DISCHARGE DATE: 02/13/19 1609 VISIT LOCKED DATE TIME: PHYSICIAN: TALITA ARGUETA RESOURCE: TALITA ARGUETA REASON FOR APPOINTMENT 1. PER LB HISTORY OF PRESENT ILLNESS HISTORY OF PRESENT ILLNESS: HERE FOR F/U OF CHRONIC LOW BACK PAIN .RATING PAIN VAS 10/10.FINDS CURRENT MEDICATION EFFECTIVE AT REDUCING PAIN AND KEEPING HER COMFORTABLE.USING HYDROCODONE 5/325 Q6PRN.DESCRIBES LOW BACK PAIN CONSTANT AND SHARP. PAIN THE PATIENT DESCRIBES THE PAIN... THE PATIENT DESCRIBES THE PAIN... THE PATIENT DESCRIBES THE PAIN... PAIN THE PATIENT DESCRIBES THE PAIN... THE PATIENT DESCRIBES THE PAIN... THE PATIENT DESCRIBES THE PAIN... FALL RISK SCREENING: SCREENING :NO FALLS REPORTED IN THE LAST YEAR CURRENT MEDICATIONS TAKING HYDROXYZINE HCL 10 MG TABLET ORALLY TAKING PANTOPRAZOLE SODIUM 40 MG TABLET DELAYED RELEASE 1 TABLET ORALLY ONCE A DAY TAKING VENTOLIN HFA 108 (90 BASE) MCG/ACT AEROSOL SOLUTION 2 PUFFS INHALATION EVERY 4 HRS NEEDED, NOTES: PRN TAKING NORCO 5-325 MG TABLET 1 TABLET NEEDED ORALLY Q4-6 HR PRN MDD5 TAKING ASPIR-81 NOT-TAKING PREDNISONE 10 MG TABLET 4 TABS QDAY X 3, 3 TAB QDAY X 3, 2 TABS QDAY X 3, 1 TAB QDAY X 3 DAYS ORALLY DIRECTED NOT-TAKING FLONASE 50 MCG/ACT SUSPENSION 1 SPRAY IN EACH NOSTRIL NASALLY BID NOT-TAKING NORCO 5-325 MG TABLET 1 TABLET NEEDED ORALLY EVERY 6 HRS PRN PAIN MDD4 __#100 TAB SHOULD LAST 30 DAYS MEDICATION LIST REVIEWED AND RECONCILED WITH THE PATIENT PAST MEDICAL HISTORY UTI OBESITY ASTHMA DM, TYPE II LOW BACK PAIN MIGRAINES HTN CHRONIC NONALCOHOLIC LIVER DISEASE NONPROLIFERATIVE DIABETIC RETINOPATHY IC GLAUCOMA ALLERGIES BEE STINGS: ANAPHYLAXIS - ALLERGY PENICILLIN (FOR ALLERGIES USE ONLY): ANAPHYLAXIS - ALLERGY CORTIZONE SHOTS: ANAPHYLAXIS - ALLERGY BELBUCA: MIGRAINE AND VOMITING - SIDE EFFECTS IV DYE SURGICAL HISTORY PARTIAL HYSTERECTOMY 1994 C SECTION 2000 HYSTERECTOMY 2001 COLONOSCOPY 1992 CYSTOSCOPY AROUND ENDOSCOPY RECONSTRUCTIVE SURGERY TO RIGHT HEAL AND FOOT WITH SCREWS IN PLACE 01/14/19 FAMILY HISTORY FATHER: ALIVE, HTN, MS, KIDNEY ISSUES, DIAGNOSED WITH HYPERTENSION MOTHER: ALIVE, HTN, DIABETES, KIDNEY DISEASE, OSTEOPOROSIS SIBLINGS: ALIVE, HTN- BROTHER 1 BROTHER(S) . 2 SON(S) - HEALTHY. SOCIAL HISTORY GENERAL: TOBACCO USE ARE YOU A:FORMER SMOKER HOW LONG HAS IT BEEN SINCE YOU LAST SMOKED?> 10 YEARS OTHERS AT HOME: SONS. 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 LANGUAGE TAMAZIGHT. DOMESTIC VIOLENCE NONE. RECREATIONAL DRUG USE DRUG USE?NO EXERCISE: DAILY. LEARNING BARRIERS / SPECIAL NEEDS BARRIERS TO LEARNING?NO HEARING IMPAIRED?NO VISION IMPAIRED?NO COGNITIVELY IMPAIRED?NO READINESS TO LEARN?YES LEARNING PREFERENCES?NO LEARNING CAPABILITIES PRESENT?YES EMOTIONAL BARRIERS?NO SPECIAL DEVICES?NO HEALTH BENEFITS SPECIALIST NEEDED?NO PAIN CLINIC PFS, CLERGY, PUBLIC HEALTH REFERRALS HAS THE PATIENT BEEN EDUCATED REGARDING HIS/HER PLAN OF CARE?YES HAS THE PATIENT BEEN EDUCATED REGARDING PAIN, THE RISK FOR PAIN, THE IMPORTANCE OF EFFECTIVE PAIN MANAGEMENT, AND THE PAIN ASSESSMENT PROCESS?YES LATEX QUESTIONNAIRE LATEX ALLERGY : HAVE YOU EVER DEVELOPED ANY TYPE OF REACTION AFTER HANDLING LATEX PRODUCTS SUCH RUBBER GLOVES, CONDOMS, DIAPHRAGMS, BALLOONS, SOCKS, OR UNDERWEAR?NO LATEX ALLERGY : HAVE YOU EVER DEVELOPED ANY TYPE OF REACTION DURING OR AFTER DENTAL APPOINTMENT, VAGINAL/RECTAL EXAMINATION, SURGICAL PROCEDURE, OR ANY OTHER EXPOSURE?NO LATEX RISK : HAVE YOU EVER HAD ANY DIFFICULTY BREATHING OR HIVES AFTER EATING OR HANDLING ANY FRUITS, OR VEGETABLES; SUCH KIWI, BANANAS, STONE FRUITS, OR CHESTNUTSNO LATEX RISK : DO YOU HAVE A PREVIOUS PERSONAL HISTORY OF MORE THAN NINE SURGERIES, SPINA BIFIDA, OR REPEATED CATHERTIZATIONS? NO LATEX RISK : ARE YOU FREQUENTLY EXPOSED TO LATEX PRODUCTS IN YOUR OCCUPATION?NO DATE ASKED : 01/08/2019 CAFFEINE 1 CUP/DAY. ADVANCE DIRECTIVE ADVANCE DIRECTIVE DISCUSSED WITH PATIENT:YES DECLINED HCP INFO AND ASSISTANCE AT THIS TIME DENOMINATIONAL NO MORMON BELIEFS THAT WOULD IMPACT HEALTH CARE. MARITAL STATUS: . ALCOHOL SCREENING POINTS: 0, INTERPRETATION: NEGATIVE. 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 SEXUAL HX HAD SEX IN THE LAST 12 MONTHS (VAGINAL, ORAL, OR ANAL)?: NO, HAVE YOU EVER HAD AN STD?: YES, CHLAMYDIA?: YES. REVIEWED WITH PT 01/08/19 1128 BV. HOSPITALIZATION/MAJOR DIAGNOSTIC PROCEDURE SURGERY RELATED REVIEW OF SYSTEMS REVIEWED BY: PROVIDER: TALITA ZABALA . CONSTITUTIONAL: ANY CHANGE IN YOUR MEDICAL CONDITION? YES, RIGHT HEAL AND FOOT RECONSTRUCTION 12/2018 . CHILLS NO . FEVER NO . INFECTION: DO YOU HAVE NEW INFECTIONS? NO . DO YOU HAVE HISTORY OF MRSA? NO . MUSCULOSKELETAL: ANY NEW PATTERNS OF PAIN OR NUMBNESS? NO . GASTROENTEROLOGY: ANY NEW CHANGE IN BOWEL CONTROL? NO . GENITOURINARY: ANY NEW CHANGE IN BLADDER CONTROL? NO . IS THERE A CHANCE YOU COULD BE ? NO . HEMATOLOGY/LYMPH: DO YOU TAKE ANY BLOOD THINNERS? (FOR EXAMPLE- COUMADIN, PLAVIX, AGGRENOX, PLATEL, PRADAXA, OR XARELTO) NO . WHEN WAS YOUR LAST DOSE? DATE: TIME: . NEUROLOGY: HAVE YOU FALLEN IN THE PAST 12 MONTHS? NO . ANY NEW EXTREMITY NUMBNESS OR WEAKNESS? NO . CARDIOLOGY: DO YOU HAVE A PACEMAKER OR DEFIBRILLATOR? NO . RESPIRATORY: HAVE YOU BEEN SICK IN THE PAST WEEK? NO . FEVER NO . FLU LIKE SYMPTOMS? NO . COUGH NO . INTEGUMENTARY: DO YOU HAVE ANY RASHES OR OPEN SORES? NO . ALLERGIC/IMMUNO: ARE YOU ALLERGIC TO IV DYE? YES . ANY NEW ALLERGIES? NO . PSYCHIATRIC: DO YOU HAVE THOUGHTS OF HURTING YOURSELF OR SOMEONE ELSE? NO . ARE YOU ABUSED, NEGLECTED, OR IN AN UNSAFE ENVIRONMENT? NO . ENDOCRINOLOGY: ARE YOU DIABETIC? YES . OTHER: DO YOU NEED ANY PRESCRIPTIONS? NO . IF YES, PLEASE LIST: ____ . ANY NEW PROBLEMS WITH YOUR MEDICATIONS? NO . WHEN DID YOU LAST EAT? ____ . WHEN DID YOU LAST DRINK? ____ . WHAT DID YOU LAST DRINK? ____ . NAME OF PERSON DRIVING YOU HOME? ____ . DO YOU HAVE ANY OTHER QUESTIONS OR CONCERNS NO . VITAL SIGNS WT 214.2 LBS, HT 63.5 IN, BMI 37.34 INDEX, BP 137/91 MM HG, HR 96 /MIN, RR 18 /MIN, TEMP 97.4 F, OXYGEN SAT % 96%, NA INITIALS SC 15:41, REVIEWED BY: EM. EXAMINATION GENERAL EXAMINATION: GENERAL APPEARANCE:AWAKE,ALERT ,PLEAASANT . PSYCHAFFECT NORMAL . LUNGS:LUNG DOSHI ARE CLEAR TO AUSCULTATION BILATERALLY. GOOD MOVEMENT OF AIR . HEART:S1, S2 IN A REGULAR RATE AND RHYTHM. NO SIGNIFICANT MURMURS, RUBS OR GALLOPS NOTED . ASSESSMENTS SACROILIAC JOINT PAIN - M53.3 (PRIMARY) TREATMENT SACROILIAC JOINT PAIN REFILL NORCO TABLET, 5-325 MG, 1 TABLET NEEDED, ORALLY, Q4-6 HR PRN MDD5, 30 DAY(S), 150, REFILLS 0 NOTES: ISTOP REGISTRY REVIEWED AND DEMONSTRATES COMPLLIANCE. BRINGS IN MEDICATIONS WHICH IS APPROPRIATE FOR WHAT WAS DISPENSED. RECENT URINE TOXICOLOGY REVIEWED. NO UNAUTHORIZED MEDICATIONS. NO ILLICIT SUBSTANCES AND PRESCRIBED MEDICATIONS WERE PRESENT. , RISKS AND BENEFITS OF NARCOTIC/OPIOD MEDICATIONS WERE REVIEWED WITH PATIENT - THIS INCLUDES BUT IS NOT LIMITED TO RISK OF DEPENDANCE/DEVELOPMENT OF ADDICTION, MOOD DISTURBANCE AND DEPRESSION, OSTEOPOROSIS, HORMONAL AND LABIDAL CHANGES, RESPIRATORY DEPRESSION AND . PATIENT IS ADVISED NOT TO DRIVE OR DRINK ALCOHOL WHILE ON THESE MEDICATIONS. PROCEDURE CODES FA211 ESTABILISHED PATIENT [facility] CHARGE DISPOSITION & COMMUNICATION FOLLOW UP 6 WEEKS ELECTRONICALLY SIGNED BY SAGRARIO SIMONS ON 03/04/2019 AT 08:31 AM EDT DISCLAIMER : THIS IS A VISIT SUMMARY EXTRACTED FROM THE [employer] CHART. IT IS NOT A COPY OF THE [employer] PROGRESS NOTE. DUYEN
== END ==
LOC: M PAIN 14:45
PROVIDERS: ATTEND Nurse Practitioner Family
DX: M53.3 Sacrococcygeal disorders, not elsewhere classified (principal); G89.29 Other chronic pain; E11.9 Type 2 diabetes mellitus without complications; J45.909 Unspecified asthma, uncomplicated; G43.909 Migraine, unspecified, not intractable, without status migrainosus; I10 Essential (primary) hypertension; K76.0 Fatty (change of) liver, not elsewhere classified; Z79.82 Long term (current) use of aspirin; Z79.899 Other long term (current) drug therapy; Z88.0 Allergy status to penicillin; Z88.8 Allergy status to other drugs, medicaments and biological substances; Z91.041 Radiographic dye allergy status; Z91.030 Bee allergy status; Z87.891 Personal history of nicotine dependence

== ENCOUNTER → 2019-04-12 | Outpatient (REF) | payer OTHER, MEDICAID ==
[2019-04-12 11:43] LABS: BASO # 0.1 10^3/uL (0.0-0.2); BASO % 0.9 % (0.0-1.0); EOS # 0.3 10^3/uL (0.0-0.50); EOS % 3.5 % (0.0-3.0); HEMATOCRIT 44.7 % (36.0-47.0); HEMOGLOBIN 14.8 g/dl (12.0-15.5); LYMPH # 2.6 10^3/uL (1.5-4.5); LYMPH % 34.4 % (24.0-44.0); MEAN CORPUSCULAR HEMOGLOBIN 31.2 pg (27.0-33.0); MEAN CORPUSCULAR HGB CONC 33.1 g/dl (32.0-36.5); MEAN CORPUSCULAR VOLUME 94.1 fl (80.0-96.0); MONO # 0.5 10^3/uL (0.0-0.8); MONO % 6.1 % (0.0-5.0); NEUTROPHILS % 54.4 % (36.0-66.0); PLATELET COUNT, AUTOMATED 305 10^3/uL (150-450); RED BLOOD COUNT 4.75 10^6/uL (4.00-5.40); WHITE BLOOD COUNT 7.4 10^3/uL (4.0-10.0)
[2019-04-12 12:06] LABS: ERYTHROCYTE SEDIMENTATION RATE 4 mm/hr (0-20)
== END ==
LOC: M LABDRAW1 09:47
PROVIDERS: ATTEND Orthopaedic Surgery
DX: M25.571 Pain in right ankle and joints of right foot (principal)

== ENCOUNTER 2019-05-30 15:16 | Emergency (ER) | payer MEDICAID, OTHER ==
[~2019-05-30] VITALS: Ht 160 cm; Wt 98.0 kg
[2019-05-30] MEDS ORDERED: BACT800T5 PO (17:53)
[2019-05-30 18:03] VITALS: BP 140/83
== END 2019-05-30 18:04 | disposition home or self-care (01) ==
LOC: M ED 15:16
DX: N30.00 Acute cystitis without hematuria (principal); M54.9 Dorsalgia, unspecified; M25.579 Pain in unspecified ankle and joints of unspecified foot; G89.29 Other chronic pain; R51 Headache; J45.909 Unspecified asthma, uncomplicated; K21.9 Gastro-esophageal reflux disease without esophagitis; Z87.440 Personal history of urinary (tract) infections; F41.9 Anxiety disorder, unspecified; Z88.0 Allergy status to penicillin; Z88.8 Allergy status to other drugs, medicaments and biological substances; Z91.030 Bee allergy status

== ENCOUNTER 2019-06-20 11:44 | Emergency (ER) | payer OTHER ==
[~2019-06-20] VITALS: Ht 160 cm; Wt 98.2 kg
[~2019-06-20 11:44] MED LIST changes: -EPIN0.3I11; -GABA-1171 PO; -IBUP-1022 PO
[2019-06-20] MEDS ORDERED: EPIN0.3I11 (11:55)
[2019-06-20] MEDS ORDERED: HYDR-643 PO (11:55)
[2019-06-20] MEDS ORDERED: GABA-1171 PO (11:55)
[2019-06-20] MEDS ORDERED: PANT40TA3 PO (11:55)
--- NOTE | 2019-06-20 13:23 | REP ---
Right lower extremity Duplex Doppler venous ultrasound: Real time compression and duplex Doppler interrogation of the right lower extremity deep venous system is performed. The right common femoral, superficial femoral and popliteal veins are fully compressible with transducer pressure and demonstrate normal spontaneous and phasic flow, without evidence of deep venous thrombosis. Impression: No evidence of deep venous thrombosis of the right lower extremity femoral popliteal venous system. Electronically Signed by Ulises Chopra MD 06/20/2019 01:14 P
[2019-06-20] MEDS ORDERED: PERCOCET 5MG/325MG TAB PO ONE (13:30)
[2019-06-20] MEDS ORDERED: KETOROLAC TROMETHAMINE 10 MG TAB PO ONE (13:45)
[2019-06-20 14:47] LABS: BASO # 0.1 10^3/uL (0.0-0.2); BASO % 0.7 % (0.0-1.0); EOS # 0.2 10^3/uL (0.0-0.5); EOS % 2.1 % (0.0-3.0); HEMATOCRIT 42.5 % (36.0-47.0); LYMPH # 2.7 10^3/uL (1.5-5.0); LYMPH % 33.3 % (24.0-44.0); MEAN CORPUSCULAR HEMOGLOBIN 30.8 pg (27.0-33.0); MEAN CORPUSCULAR HGB CONC 32.9 g/dl (32.0-36.5); MEAN CORPUSCULAR VOLUME 93.4 fl (80.0-96.0); MONO # 0.5 10^3/uL (0.0-0.8); MONO % 6.7 % (0.0-5.0); NEUTROPHILS # 4.6 10^3/uL (1.5-8.5); NEUTROPHILS % 56.8 % (36.0-66.0); PLATELET COUNT, AUTOMATED 294 10^3/uL (150-450); RED BLOOD COUNT 4.55 10^6/uL (4.00-5.40); WHITE BLOOD COUNT 8.1 10^3/uL (4.0-10.0)
[2019-06-20 15:29] LABS: BLOOD UREA NITROGEN 14 MG/DL (7-18); C REACTIVE PROTEIN QUANTITATIV 0.76 MG/DL (0.00-0.30); CALCIUM LEVEL 9.6 MG/DL (8.5-10.1); CARBON DIOXIDE LEVEL 20 MEQ/L (21-32); CHLORIDE LEVEL 109 MEQ/L (98-107); CREATININE FOR GFR 0.82 MG/DL (0.55-1.30); GLOMERULAR FILTRATION RATE > 60.0 (>58); GLUCOSE, FASTING 102 MG/DL (70-100); POTASSIUM SERUM 4.2 MEQ/L (3.5-5.1); SODIUM LEVEL 140 MEQ/L (136-145)
[2019-06-20 15:52] LABS: ERYTHROCYTE SEDIMENTATION RATE 9 mm/hr (0-20)
--- NOTE | 2019-06-20 16:34 | REP ---
CT RIGHT ANKLE: CT right ankle was performed in the axial plane. Sagittal and coronal reconstruction images are performed. There has been surgical fusion of the talus and calcaneus with two metallic screws fusing these bones. There is obliteration of the talocalcaneal joint space. There is no acute fracture or dislocation. Ankle mortise is anatomic. No osteochondral defect is visualized at the talar dome. There is moderate posterior calcaneal spurring. Electronically Signed by Ulises Chopra MD 06/20/2019 05:57 P
[2019-06-20] MEDS ORDERED: IBUP-1022 PO (16:42)
[2019-06-20 16:50] VITALS: BP 135/88
== END 2019-06-20 17:06 | disposition home or self-care (01) ==
LOC: M ED 11:44
DX: M25.571 Pain in right ankle and joints of right foot (principal); J45.909 Unspecified asthma, uncomplicated; F41.9 Anxiety disorder, unspecified; K21.9 Gastro-esophageal reflux disease without esophagitis; Z79.899 Other long term (current) drug therapy; Z88.0 Allergy status to penicillin; Z88.8 Allergy status to other drugs, medicaments and biological substances

== ENCOUNTER → 2019-06-20 | Outpatient (CLI) | payer OTHER ==
[~2019-06-20] MED LIST changes: +EPIN0.3I11; +GABA-1171 PO; +IBUP-1022 PO
== END ==
LOC: M PAIN 10:30
PROVIDERS: ATTEND Nurse Practitioner Family
DX: M53.3 Sacrococcygeal disorders, not elsewhere classified (principal); G89.29 Other chronic pain; J45.909 Unspecified asthma, uncomplicated; E11.9 Type 2 diabetes mellitus without complications; G43.909 Migraine, unspecified, not intractable, without status migrainosus; I10 Essential (primary) hypertension; Z87.891 Personal history of nicotine dependence; Z88.0 Allergy status to penicillin; Z88.5 Allergy status to narcotic agent; Z88.8 Allergy status to other drugs, medicaments and biological substances; Z91.030 Bee allergy status; Z91.041 Radiographic dye allergy status; Z79.899 Other long term (current) drug therapy

== ENCOUNTER → 2019-10-28 | Outpatient (REF) | payer OTHER ==
[~2019-10-28] MED LIST changes: +EPIN0.3I11; +GABA-1171 PO; +IBUP-1022 PO
[2019-10-28 14:13] LABS: APPEARANCE, URINE HAZY (CLEAR); BACTERIA, URINE AUTO 1+ (NEGATIVE); BILIRUBIN, URINE AUTO NEGATIVE (NEGATIVE); BLOOD, URINE BLOOD 1+ (NEGATIVE); COLOR, URINE YELLOW (YELLOW); GLUCOSE, URINE (UA) AUTO NEGATIVE (NEGATIVE); KETONE, URINE AUTO NEGATIVE (NEGATIVE); LEUKOCYTE ESTERASE, URINE AUTO TRACE (NEGATIVE); MUCUS, URINE SMALL (NEGATIVE); NITRITE, URINE AUTO NEGATIVE (NEGATIVE); PROTEIN, URINE AUTO NEGATIVE (NEGATIVE); RBC, URINE AUTO 1 /HPF (0-3); SPECIFIC GRAVITY URINE AUTO 1.024 (1.002-1.035); SQUAMOUS EPITHELIAL CELL UR AU 2 /HPF (0-6); UROBILINOGEN, URINE AUTO 0.2 mg/dL (0.0-2.0); WBC, URINE AUTO 8 /HPF (0-3)
== END ==
LOC: M SMT 13:30
PROVIDERS: ATTEND Nurse Practitioner Women's Health
DX: R30.0 Dysuria (principal)

== ENCOUNTER → 2019-11-11 | Outpatient (REF) | payer OTHER ==
[2019-11-11 14:56] LABS: APPEARANCE, URINE HAZY (CLEAR); BACTERIA, URINE AUTO NEGATIVE (NEGATIVE); BILIRUBIN, URINE AUTO NEGATIVE (NEGATIVE); BLOOD, URINE BLOOD NEGATIVE (NEGATIVE); COLOR, URINE YELLOW (YELLOW); GLUCOSE, URINE (UA) AUTO NEGATIVE (NEGATIVE); KETONE, URINE AUTO NEGATIVE (NEGATIVE); LEUKOCYTE ESTERASE, URINE AUTO TRACE (NEGATIVE); MUCUS, URINE SMALL (NEGATIVE); NITRITE, URINE AUTO NEGATIVE (NEGATIVE); PROTEIN, URINE AUTO NEGATIVE (NEGATIVE); RBC, URINE AUTO 1 /HPF (0-3); SPECIFIC GRAVITY URINE AUTO 1.023 (1.002-1.035); SQUAMOUS EPITHELIAL CELL UR AU 2 /HPF (0-6); UROBILINOGEN, URINE AUTO 0.2 mg/dL (0.0-2.0); WBC, URINE AUTO 1 /HPF (0-3)
== END ==
LOC: M SMT 13:09
PROVIDERS: ATTEND Nurse Practitioner Family
DX: N39.0 Urinary tract infection, site not specified (principal)

== ENCOUNTER → 2019-11-15 | Outpatient (CLI) | payer OTHER ==
--- NOTE | 2019-11-15 13:09 | REP ---
Clinical: Recurrent urinary tract infection. Technique: Real time menchaca scale and color evaluation using curved array transducer. Findings: Bladder is normal in appearance without wall thickening or mass lesion. Prevoid bladder measures 290 ml. Postvoid bladder is completely emptied. Impression: No obvious bladder abnormality noted. Electronically Signed by Mauro Maldonado MD 11/15/2019 01:01 P
--- NOTE | 2019-11-15 13:12 | REP ---
Clinical: Recurrent urinary tract infection. Technique: Real time menchaca scale ultrasound examination using curved array transducer. Findings: Bilateral kidneys are normal in contour, size, echogenicity, and reniform shape without hydronephrosis, nephrolithiasis, cystic or renal mass lesion. No perinephric fluid collection. Right kidney measures 12.3 x 5.7 x 4.1 cm. Left kidney measures 11.6 x 5.0 x 5.6 cm. Impression: Normal renal ultrasound. Electronically Signed by Mauro Maldonado MD 11/15/2019 01:03 P
== END ==
LOC: M RAD 12:08
PROVIDERS: ATTEND Nurse Practitioner Family
DX: N39.0 Urinary tract infection, site not specified (principal); Z87.440 Personal history of urinary (tract) infections

== ENCOUNTER → 2019-11-27 | Outpatient (CLI) | payer OTHER ==
--- NOTE | 2019-11-27 16:13 | REP ---
CERVICAL SPINE SERIES: Full cervical spine series performed. There is no compression fracture or malalignment. There is no prevertebral soft tissue swelling. Disc spaces are well preserved. There is no subluxation with flexion or extension. I do not see radiographic evidence of significant neural foraminal narrowing. IMPRESSION: Negative cervical spine series. Electronically Signed by Ulises Chopra MD 11/28/2019 10:32 A
--- NOTE | 2019-11-27 16:22 | REP ---
LUMBOSACRAL SPINE SERIES: Five views of the lumbosacral spine are performed. There is no compression fracture. There is normal lumbar lordosis with no spondylolysis or spondylolisthesis. Disc spaces are well preserved. There is mild sclerosis at the facets of L5-S1. The posterior elements are intact. IMPRESSION: Mild sclerosis of the facets of L5-S1 without other significant findings. Electronically Signed by Ulises Chopra MD 11/28/2019 10:32 A
== END ==
LOC: M RAD 12:24
PROVIDERS: ATTEND Internal Medicine
DX: G95.89 Other specified diseases of spinal cord (principal)

== ENCOUNTER → 2019-12-05 | Outpatient (REF) | payer OTHER ==
[2019-12-05 14:04] LABS: APPEARANCE, URINE CLEAR (CLEAR); BACTERIA, URINE AUTO NEGATIVE (NEGATIVE); BILIRUBIN, URINE AUTO NEGATIVE (NEGATIVE); BLOOD, URINE BLOOD 1+ (NEGATIVE); COLOR, URINE YELLOW (YELLOW); GLUCOSE, URINE (UA) AUTO NEGATIVE (NEGATIVE); KETONE, URINE AUTO NEGATIVE (NEGATIVE); LEUKOCYTE ESTERASE, URINE AUTO NEGATIVE (NEGATIVE); NITRITE, URINE AUTO NEGATIVE (NEGATIVE); PROTEIN, URINE AUTO NEGATIVE (NEGATIVE); RBC, URINE AUTO 1 /HPF (0-3); SPECIFIC GRAVITY URINE AUTO 1.021 (1.002-1.035); SQUAMOUS EPITHELIAL CELL UR AU 2 /HPF (0-6); UROBILINOGEN, URINE AUTO 0.2 mg/dL (0.0-2.0); WBC, URINE AUTO 1 /HPF (0-3)
== END ==
LOC: M SMT 13:02
PROVIDERS: ATTEND Nurse Practitioner Family
DX: N39.0 Urinary tract infection, site not specified (principal)

== ENCOUNTER → 2020-02-18 | Outpatient (REF) | payer OTHER ==
[~2020-02-18] MED LIST changes: +PHEN-501 PO; +TIZA4TAB4 PO; +ZOFR4TAB16 PO
[2020-02-18 18:07] LABS: APPEARANCE, URINE CLOUDY (CLEAR); BACTERIA, URINE AUTO 1+ (NEGATIVE); BILIRUBIN, URINE AUTO NEGATIVE (NEGATIVE); BLOOD, URINE BLOOD 1+ (NEGATIVE); COLOR, URINE AMBER (YELLOW); GLUCOSE, URINE (UA) AUTO NEGATIVE (NEGATIVE); KETONE, URINE AUTO TRACE mg/dL (NEGATIVE); LEUKOCYTE ESTERASE, URINE AUTO 3+ (NEGATIVE); MUCUS, URINE SMALL (NEGATIVE); NITRITE, URINE AUTO NEGATIVE (NEGATIVE); PROTEIN, URINE AUTO 1+ mg/dL (NEGATIVE); RBC, URINE AUTO 10 /HPF (0-3); SPECIFIC GRAVITY URINE AUTO 1.034 (1.002-1.035); SQUAMOUS EPITHELIAL CELL UR AU 19 /HPF (0-6); UROBILINOGEN, URINE AUTO 0.2 mg/dL (0.0-2.0); WBC, URINE AUTO TNTC /HPF (0-3)
== END ==
LOC: M SMT 16:41
PROVIDERS: ATTEND Nurse Practitioner Family
DX: R30.0 Dysuria (principal)

== ENCOUNTER 2020-02-20 00:06 | Emergency (ER) | payer OTHER ==
[~2020-02-20 00:06] MED LIST changes: -PHEN-501 PO; -TIZA4TAB4 PO; -ZOFR4TAB16 PO
[2020-02-20 00:07] VITALS: BP 177/95
[2020-02-20] MEDS ORDERED: PHEN-501 PO (00:21)
[2020-02-20] MEDS ORDERED: TIZA4TAB4 PO (00:21)
--- NOTE | 2020-02-20 02:34 | REP ---
Clinical: Chest pain . Comparison: 12/21/2018 . Findings: The mediastinum and cardiac silhouette are stable and within normal limits for portable technique. The lung escalona are clear without acute consolidation, effusion, or pneumothorax. Skeletal structures are intact. Impression: No acute cardiopulmonary process appreciated. Electronically Signed by Mauro Maldonado MD 02/20/2020 02:25 A
[2020-02-20] MEDS ORDERED: BACT800T5 PO (02:38)
[2020-02-20] MEDS ORDERED: BACTRIM 160MG/800MG DS TAB PO ONE (02:45)
[2020-02-20] MEDS ORDERED: ZOFR4TAB16 PO (13:26)
--- NOTE | 2020-02-20 21:24 | ECGEPIP ---
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
== END 2020-02-20 03:28 | disposition home or self-care (01) ==
LOC: M ED 00:06
DX: N30.90 Cystitis, unspecified without hematuria (principal); E11.9 Type 2 diabetes mellitus without complications; I10 Essential (primary) hypertension; E66.9 Obesity, unspecified; J45.909 Unspecified asthma, uncomplicated; M54.5 Low back pain; G89.29 Other chronic pain; G43.909 Migraine, unspecified, not intractable, without status migrainosus; K21.9 Gastro-esophageal reflux disease without esophagitis; F41.9 Anxiety disorder, unspecified; Z87.891 Personal history of nicotine dependence; Z88.0 Allergy status to penicillin; Z88.8 Allergy status to other drugs, medicaments and biological substances; Z91.030 Bee allergy status; Z79.899 Other long term (current) drug therapy

== ENCOUNTER 2020-02-20 10:42 | Emergency (ER) | payer OTHER ==
[~2020-02-20] VITALS: Ht 160 cm; Wt 95.2 kg
[~2020-02-20 10:42] MED LIST changes: +PHEN-501 PO; +TIZA4TAB4 PO
--- NOTE | 2020-02-20 11:25 | REP ---
CHEST, SINGLE VIEW: There is no evidence of acute infiltrate. No pleural effusion is seen. The heart is normal in size. The mediastinal silhouette is unremarkable. The visualized osseous structures are intact. IMPRESSION: No acute pulmonary disease. Electronically Signed by Ulises Chopra MD 02/20/2020 02:54 P
[2020-02-20 11:55] LABS: BASO # 0.1 10^3/uL (0.0-0.2); BASO % 0.6 % (0.0-1.0); EOS % 0.2 % (0.0-3.0); HEMATOCRIT 44.1 % (36.0-47.0); LYMPH # 2.3 10^3/uL (1.5-5.0); LYMPH % 19.8 % (24.0-44.0); MEAN CORPUSCULAR HEMOGLOBIN 30.1 pg (27.0-33.0); MEAN CORPUSCULAR VOLUME 88.6 fl (80.0-96.0); MONO # 0.7 10^3/uL (0.0-0.8); MONO % 5.9 % (0.0-5.0); NEUTROPHILS # 8.3 10^3/uL (1.5-8.5); NEUTROPHILS % 72.9 % (36.0-66.0); PLATELET COUNT, AUTOMATED 333 10^3/uL (150-450); RED BLOOD COUNT 4.98 10^6/uL (4.00-5.40); WHITE BLOOD COUNT 11.4 10^3/uL (4.0-10.0)
[2020-02-20 12:07] LABS: INR 0.93; PROTHROMBIN TIME 12.2 SECONDS (11.8-14.0)
[2020-02-20 12:33] LABS: ALBUMIN 4.8 GM/DL (3.2-5.2); ALT/SGPT 33 U/L (12-78); BILIRUBIN,DIRECT 0.2 MG/DL (0.0-0.2); BILIRUBIN,TOTAL 0.7 MG/DL (0.2-1.0); CK-MB VALUE MASS < 1.0 NG/ML (<3.6); CPK CREATINE PHOSPHOKINASE 137 U/L (26-192); LIPASE 98 U/L (73-393); MB/CK RELATIVE INDEX 0.73 (< OR =4); TOTAL PROTEIN 8.9 GM/DL (6.4-8.2); TROPONIN I < 0.02 NG/ML (< 0.10)
[2020-02-20] MEDS ORDERED: LABETALOL 100MG/20ML VIAL IV STA (12:36)
[2020-02-20 12:44] VITALS: BP 171/97
[2020-02-20] MEDS ORDERED: ONDANSETRON 4MG/2ML VIAL IV ONE (12:45)
[2020-02-20] MEDS ORDERED: ZOFR4TAB16 PO (13:26)
[2020-02-20 14:01] VITALS: BP 183/99
--- NOTE | 2020-02-20 21:29 | ECGEPIP ---
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
== END 2020-02-20 14:15 | disposition home or self-care (01) ==
LOC: M ED 10:42
DX: R53.81 Other malaise (principal); R50.9 Fever, unspecified; N39.0 Urinary tract infection, site not specified; Z88.0 Allergy status to penicillin; Z88.8 Allergy status to other drugs, medicaments and biological substances; Z91.030 Bee allergy status
CPT/HCPCS: 71045; 80047; 80076; 81001; 82550; 82553; 83690; 85025; 85610; 93005; 93041; 94760; 96374; 96375; 99285; C9803; J2405; U0003

== ENCOUNTER → 2020-03-04 | Outpatient (REF) | payer OTHER ==
[~2020-03-04] MED LIST changes: +ZOFR4TAB16 PO
[2020-03-04 19:04] LABS: APPEARANCE, URINE CLOUDY (CLEAR); BACTERIA, URINE AUTO NEGATIVE (NEGATIVE); BILIRUBIN, URINE AUTO NEGATIVE (NEGATIVE); BLOOD, URINE BLOOD NEGATIVE (NEGATIVE); COLOR, URINE YELLOW (YELLOW); GLUCOSE, URINE (UA) AUTO NEGATIVE (NEGATIVE); KETONE, URINE AUTO TRACE mg/dL (NEGATIVE); LEUKOCYTE ESTERASE, URINE AUTO 1+ (NEGATIVE); MUCUS, URINE SMALL (NEGATIVE); NITRITE, URINE AUTO NEGATIVE (NEGATIVE); PROTEIN, URINE AUTO 2+ mg/dL (NEGATIVE); RBC, URINE AUTO 2 /HPF (0-3); SPECIFIC GRAVITY URINE AUTO 1.027 (1.002-1.035); SQUAMOUS EPITHELIAL CELL UR AU 7 /HPF (0-6); UROBILINOGEN, URINE AUTO 0.2 mg/dL (0.0-2.0); WBC, URINE AUTO 10 /HPF (0-3)
== END ==
LOC: M SMT 17:51
PROVIDERS: ATTEND Nurse Practitioner Family
DX: N39.0 Urinary tract infection, site not specified (principal)

== ENCOUNTER → 2020-03-18 | Outpatient (REF) | payer OTHER ==
[2020-03-18 18:55] LABS: AMORPHOUS SEDIMENT LARGE (NEGATIVE); APPEARANCE, URINE TURBID (CLEAR); BACTERIA, URINE AUTO NEGATIVE (NEGATIVE); BILIRUBIN, URINE AUTO NEGATIVE (NEGATIVE); BLOOD, URINE BLOOD 1+ (NEGATIVE); COLOR, URINE YELLOW (YELLOW); GLUCOSE, URINE (UA) AUTO 1+ mg/dL (NEGATIVE); KETONE, URINE AUTO TRACE mg/dL (NEGATIVE); LEUKOCYTE ESTERASE, URINE AUTO TRACE (NEGATIVE); MUCUS, URINE SMALL (NEGATIVE); NITRITE, URINE AUTO NEGATIVE (NEGATIVE); PROTEIN, URINE AUTO 1+ mg/dL (NEGATIVE); RBC, URINE AUTO 0 /HPF (0-3); SPECIFIC GRAVITY URINE AUTO 1.027 (1.002-1.035); SQUAMOUS EPITHELIAL CELL UR AU 0 /HPF (0-6); UROBILINOGEN, URINE AUTO 0.2 mg/dL (0.0-2.0); WBC, URINE AUTO 0 /HPF (0-3)
== END ==
LOC: M SMT 16:47
PROVIDERS: ATTEND Nurse Practitioner Family
DX: N39.0 Urinary tract infection, site not specified (principal)

== ENCOUNTER → 2020-06-16 | Outpatient (REF) | payer OTHER ==
[~2020-06-16] MED LIST changes: +PANT40TA29 PO; -PANT40TA3 PO
[2020-06-16 17:45] LABS: APPEARANCE, URINE CLEAR (CLEAR); BACTERIA, URINE AUTO NEGATIVE (NEGATIVE); BILIRUBIN, URINE AUTO NEGATIVE (NEGATIVE); BLOOD, URINE BLOOD 1+ (NEGATIVE); COLOR, URINE YELLOW (YELLOW); GLUCOSE, URINE (UA) AUTO 3+ mg/dL (NEGATIVE); KETONE, URINE AUTO TRACE mg/dL (NEGATIVE); LEUKOCYTE ESTERASE, URINE AUTO NEGATIVE (NEGATIVE); MUCUS, URINE SMALL (NEGATIVE); NITRITE, URINE AUTO NEGATIVE (NEGATIVE); PROTEIN, URINE AUTO 1+ mg/dL (NEGATIVE); RBC, URINE AUTO 1 /HPF (0-3); SPECIFIC GRAVITY URINE AUTO 1.025 (1.002-1.035); SQUAMOUS EPITHELIAL CELL UR AU 3 /HPF (0-6); UROBILINOGEN, URINE AUTO 0.2 mg/dL (0.0-2.0); WBC, URINE AUTO 1 /HPF (0-3)
== END ==
LOC: M SMT 16:50
PROVIDERS: ATTEND Nurse Practitioner Family
DX: N39.0 Urinary tract infection, site not specified (principal)

== ENCOUNTER → 2020-08-21 | Outpatient (REF) | payer OTHER ==
[2020-08-21 17:55] LABS: APPEARANCE, URINE CLEAR (CLEAR); BACTERIA, URINE AUTO NEGATIVE (NEGATIVE); BILIRUBIN, URINE AUTO NEGATIVE (NEGATIVE); BLOOD, URINE BLOOD 1+ (NEGATIVE); COLOR, URINE STRAW (YELLOW); GLUCOSE, URINE (UA) AUTO 1+ mg/dL (NEGATIVE); KETONE, URINE AUTO NEGATIVE (NEGATIVE); LEUKOCYTE ESTERASE, URINE AUTO NEGATIVE (NEGATIVE); NITRITE, URINE AUTO NEGATIVE (NEGATIVE); PROTEIN, URINE AUTO NEGATIVE (NEGATIVE); RBC, URINE AUTO 0 /HPF (0-3); SPECIFIC GRAVITY URINE AUTO 1.006 (1.002-1.035); SQUAMOUS EPITHELIAL CELL UR AU 0 /HPF (0-6); UROBILINOGEN, URINE AUTO 0.2 mg/dL (0.0-2.0); WBC, URINE AUTO 0 /HPF (0-3)
== END ==
LOC: M SMT 16:55
PROVIDERS: ATTEND Nurse Practitioner Women's Health
DX: N39.0 Urinary tract infection, site not specified (principal)

== ENCOUNTER 2020-08-28 02:41 | Emergency (ER) | payer OTHER ==
[~2020-08-28] VITALS: Ht 160 cm; Wt 95.6 kg
[2020-08-28] MEDS ORDERED: TIZA4CAP PO (03:33)
[2020-08-28] MEDS ORDERED: KETOROLAC 30 MG/ML 1ML VIAL IM ONE (04:00)
[2020-08-28] MEDS ORDERED: CYCLOBENZAPRINE 5MG TABLET PO ONE (04:00)
[2020-08-28] MEDS ORDERED: KETOROLAC 30 MG/ML 1ML VIAL IV ONE (04:00)
--- NOTE | 2020-08-28 04:15 | REPVR ---
PROCEDURE INFORMATION: Exam: XR Chest, 1 View Exam date and time: 08/28/2020 3:41 AM Age: 50 years old Clinical indication: Other: Chest pain TECHNIQUE: Imaging protocol: XR of the chest Views: 1 view. COMPARISON: CR PORTABLE CHEST X-RAY 02/20/2020 10:54 AM FINDINGS: Lungs: There are no interval infiltrates. Pleural space: Unremarkable. No pleural effusion. No pneumothorax. Heart/Mediastinum: The heart and mediastinum are unchanged. Bones/joints: Unremarkable. Soft tissues: There are moderately generous overlying soft tissues. IMPRESSION: Negative chest without significant change from 02/20/2020. Electronically signed by: Sandro Monge On 08/28/2020 04:15:00 AM
[2020-08-28 04:37] LABS: CK-MB VALUE MASS < 1.0 NG/ML (<3.6); CPK CREATINE PHOSPHOKINASE 170 U/L (26-192); MB/CK RELATIVE INDEX 0.59 (< OR =4); TROPONIN I < 0.02 NG/ML (< 0.10)
[2020-08-28] MEDS ORDERED: tiZANidine 4 MG TAB PO ONE (05:15)
[2020-08-28] MEDS ORDERED: LORazepam 2 MG/ML VIAL IV STA (05:46)
[2020-08-28 06:09] LABS: BASO # 0.1 10^3/uL (0.0-0.2); BASO % 0.7 % (0.0-1.0); EOS # 0.1 10^3/uL (0.0-0.5); EOS % 0.4 % (0.0-3.0); HEMOGLOBIN 15.4 g/dl (12.0-15.5); LYMPH # 3.3 10^3/uL (1.5-5.0); LYMPH % 23.7 % (24.0-44.0); MEAN CORPUSCULAR HEMOGLOBIN 29.7 pg (27.0-33.0); MEAN CORPUSCULAR HGB CONC 32.8 g/dl (32.0-36.5); MEAN CORPUSCULAR VOLUME 90.6 fl (80.0-96.0); MONO # 1.1 10^3/uL (0.0-0.8); MONO % 7.7 % (0.0-5.0); NEUTROPHILS # 9.4 10^3/uL (1.5-8.5); NEUTROPHILS % 66.9 % (36.0-66.0); PLATELET COUNT, AUTOMATED 417 10^3/uL (150-450); RED BLOOD COUNT 5.19 10^6/uL (4.00-5.40)
[2020-08-28 06:35] LABS: C REACTIVE PROTEIN QUANTITATIV 0.83 MG/DL (0.00-0.30); CALCIUM LEVEL 10.4 MG/DL (8.5-10.1); CREATININE FOR GFR 1.17 MG/DL (0.55-1.30); GLOMERULAR FILTRATION RATE 52.6 (>58); POTASSIUM SERUM 4.5 MEQ/L (3.5-5.1)
--- NOTE | 2020-08-28 06:46 | ECGEPIP ---
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
[2020-08-28 09:04] VITALS: BP 138/75
== END 2020-08-28 09:10 | disposition home or self-care (01) ==
LOC: M ED 02:41
DX: F19.939 Other psychoactive substance use, unspecified with withdrawal, unspecified (principal); G89.4 Chronic pain syndrome; E11.9 Type 2 diabetes mellitus without complications; I10 Essential (primary) hypertension; G43.909 Migraine, unspecified, not intractable, without status migrainosus; E66.9 Obesity, unspecified; Z88.0 Allergy status to penicillin; Z88.8 Allergy status to other drugs, medicaments and biological substances; Z91.030 Bee allergy status; Z79.899 Other long term (current) drug therapy
CPT/HCPCS: 71045; 80048; 82550; 82553; 85025; 86140; 93005; 93041; 94760; 96372; 99285; J1885

== ENCOUNTER → 2020-09-10 | Outpatient (REF) | payer OTHER ==
[2020-09-10 15:16] LABS: AMORPHOUS SEDIMENT MODERATE (NEGATIVE); APPEARANCE, URINE TURBID (CLEAR); BACTERIA, URINE AUTO NEGATIVE (NEGATIVE); BILIRUBIN, URINE AUTO NEGATIVE (NEGATIVE); BLOOD, URINE BLOOD 1+ (NEGATIVE); COLOR, URINE YELLOW (YELLOW); GLUCOSE, URINE (UA) AUTO 3+ mg/dL (NEGATIVE); KETONE, URINE AUTO 1+ mg/dL (NEGATIVE); LEUKOCYTE ESTERASE, URINE AUTO NEGATIVE (NEGATIVE); MUCUS, URINE SMALL (NEGATIVE); NITRITE, URINE AUTO NEGATIVE (NEGATIVE); PROTEIN, URINE AUTO 3+ mg/dL (NEGATIVE); RBC, URINE AUTO 0 /HPF (0-3); SQUAMOUS EPITHELIAL CELL UR AU 7 /HPF (0-6); UROBILINOGEN, URINE AUTO 0.2 mg/dL (0.0-2.0); WBC, URINE AUTO 0 /HPF (0-3)
== END ==
LOC: M SMT 13:30
PROVIDERS: ATTEND Specialist
DX: N39.0 Urinary tract infection, site not specified (principal)

== ENCOUNTER → 2020-09-14 | Outpatient (REF) | payer OTHER ==
[2020-09-14 18:50] LABS: HEMOGLOBIN A1c 8.4 %
== END ==
LOC: M LABSMT 13:32
PROVIDERS: ATTEND Specialist
DX: N39.0 Urinary tract infection, site not specified (principal)

== ENCOUNTER → 2020-09-15 | Outpatient (REF) | payer OTHER | LOC: M SMT 16:43 | PROVIDERS: ATTEND Specialist | DX: N39.0 Urinary tract infection, site not specified (principal) ==

== ENCOUNTER → 2020-11-06 | Outpatient (REF) | payer OTHER ==
[2020-11-06 18:09] LABS: BACTERIA, URINE AUTO NEGATIVE (NEGATIVE); CALCIUM OXALATE CRYSTALS SMALL; MUCUS, URINE SMALL (NEGATIVE); RBC, URINE AUTO 1 /HPF (0-3); SQUAMOUS EPITHELIAL CELL UR AU 2 /HPF (0-6); WBC, URINE AUTO 2 /HPF (0-3)
== END ==
LOC: M SMT 16:46
PROVIDERS: ATTEND Specialist
DX: N39.0 Urinary tract infection, site not specified (principal)

== ENCOUNTER → 2020-11-20 | Outpatient (REF) | payer OTHER ==
[2020-11-20 17:55] LABS: APPEARANCE, URINE HAZY (CLEAR); BACTERIA, URINE AUTO 1+ (NEGATIVE); BILIRUBIN, URINE AUTO NEGATIVE (NEGATIVE); BLOOD, URINE BLOOD 1+ (NEGATIVE); COLOR, URINE YELLOW (YELLOW); GLUCOSE, URINE (UA) AUTO 1+ mg/dL (NEGATIVE); KETONE, URINE AUTO 1+ mg/dL (NEGATIVE); LEUKOCYTE ESTERASE, URINE AUTO TRACE (NEGATIVE); MUCUS, URINE SMALL (NEGATIVE); NITRITE, URINE AUTO NEGATIVE (NEGATIVE); PROTEIN, URINE AUTO 2+ mg/dL (NEGATIVE); RBC, URINE AUTO 2 /HPF (0-3); SPECIFIC GRAVITY URINE AUTO 1.023 (1.002-1.035); SQUAMOUS EPITHELIAL CELL UR AU 5 /HPF (0-6); UROBILINOGEN, URINE AUTO 0.2 mg/dL (0.0-2.0); WBC, URINE AUTO 8 /HPF (0-3)
== END ==
LOC: M SMT 16:58
PROVIDERS: ATTEND Nurse Practitioner Family
DX: N39.0 Urinary tract infection, site not specified (principal)

== ENCOUNTER → 2020-12-09 | Outpatient (REF) | payer OTHER ==
[2020-12-09 18:17] LABS: APPEARANCE, URINE CLOUDY (CLEAR); BACTERIA, URINE AUTO NEGATIVE (NEGATIVE); BILIRUBIN, URINE AUTO NEGATIVE (NEGATIVE); BLOOD, URINE BLOOD 1+ (NEGATIVE); COLOR, URINE YELLOW (YELLOW); GLUCOSE, URINE (UA) AUTO 3+ mg/dL (NEGATIVE); KETONE, URINE AUTO 1+ mg/dL (NEGATIVE); LEUKOCYTE ESTERASE, URINE AUTO NEGATIVE (NEGATIVE); NITRITE, URINE AUTO NEGATIVE (NEGATIVE); PROTEIN, URINE AUTO 2+ mg/dL (NEGATIVE); RBC, URINE AUTO 0 /HPF (0-3); SPECIFIC GRAVITY URINE AUTO 1.031 (1.002-1.035); SQUAMOUS EPITHELIAL CELL UR AU 3 /HPF (0-6); UROBILINOGEN, URINE AUTO 0.2 mg/dL (0.0-2.0); WBC, URINE AUTO 3 /HPF (0-3)
== END ==
LOC: M SMT 16:40
PROVIDERS: ATTEND Nurse Practitioner Family
DX: N39.0 Urinary tract infection, site not specified (principal)

== ENCOUNTER → 2020-12-10 | Outpatient (REF) | payer OTHER | LOC: M LAB REF 12:02 | PROVIDERS: ATTEND Internal Medicine | DX: G60.9 Hereditary and idiopathic neuropathy, unspecified (principal) ==

== ENCOUNTER → 2020-12-21 | Outpatient (REF) | payer OTHER | LOC: M SMT 17:08 | PROVIDERS: ATTEND Urology | DX: N39.0 Urinary tract infection, site not specified (principal) ==

== ENCOUNTER → 2021-02-09 | Outpatient (REF) | payer OTHER ==
[2021-02-09 17:40] LABS: PROLACTIN 3.3 NG/ML
== END ==
LOC: M LAB REF 16:15
PROVIDERS: ATTEND Internal Medicine
DX: O92.6 Galactorrhea (principal)

== ENCOUNTER 2021-02-24 00:15 | Emergency (ER) | payer OTHER ==
[~2021-02-24] VITALS: Ht 160 cm; Wt 92.2 kg
[2021-02-24 00:16] VITALS: BP 149/90
[2021-02-24] MEDS ORDERED: ONDA-83 (00:26)
[2021-02-24] MEDS ORDERED: INSU100I28 (00:26)
[2021-02-24] MEDS ORDERED: LISI-898 PO (00:26)
== END 2021-02-24 01:40 | disposition left against medical advice (07) ==
LOC: M ED 00:15
DX: Z53.21 Procedure and treatment not carried out due to patient leaving prior to being seen by health care provider (principal)

== ENCOUNTER → 2023-07-17 | Outpatient (REF) | payer OTHER ==
[~2023-07-17] MED LIST changes: +INSU100I28; +LISI5TAB11 PO; +ONDA-83; +TIZA10TA PO; -TIZA4TAB4 PO
[2023-07-20 09:10] LABS: LDL DIRECT 38 mg/dL (0-99)
== END ==
LOC: M LAB REF 16:12
PROVIDERS: ATTEND Nurse Practitioner Adult Health
DX: E78.00 Pure hypercholesterolemia, unspecified (principal)

== ENCOUNTER → 2023-10-17 | Outpatient (REF) | payer OTHER ==
[2023-10-17 16:37] LABS: APPEARANCE, URINE HAZY (CLEAR); BACTERIA, URINE AUTO 1+ (NEGATIVE); BILIRUBIN, URINE AUTO NEGATIVE (NEGATIVE); BLOOD, URINE BLOOD NEGATIVE (NEGATIVE); COLOR, URINE YELLOW (YELLOW); GLUCOSE, URINE (UA) AUTO 3+ mg/dL (NEGATIVE); KETONE, URINE AUTO NEGATIVE (NEGATIVE); LEUKOCYTE ESTERASE, URINE AUTO TRACE (NEGATIVE); MUCUS, URINE SMALL (NEGATIVE); NITRITE, URINE AUTO POSITIVE (NEGATIVE); PROTEIN, URINE AUTO NEGATIVE (NEGATIVE); RBC, URINE AUTO 1 /HPF (0-3); SPECIFIC GRAVITY URINE AUTO 1.011 (1.002-1.035); SQUAMOUS EPITHELIAL CELL UR AU 0 /HPF (0-6); UROBILINOGEN, URINE AUTO 0.2 mg/dL (0.0-2.0); WBC, URINE AUTO 5 /HPF (0-3)
[2023-10-17 16:56] LABS: CREATININE, URINE 62.4 MG/DL
[2023-10-17 16:57] LABS: MAU/CREAT RATIO 80.1 MCG/MG (0.0-30.0)
[2023-10-17 17:01] LABS: ALBUMIN 4.4 G/DL (3.2-5.2); ALKALINE PHOSPHATASE 131 U/L (46-116); ALT/SGPT 17 U/L (7.0-40); AST/SGOT 12 U/L (<34); BILIRUBIN,TOTAL 0.8 MG/DL (0.3-1.2); BLOOD UREA NITROGEN 11 MG/DL (9-23); CALCIUM LEVEL 9.9 MG/DL (8.5-10.1); CARBON DIOXIDE LEVEL 26 MMOL/L (20-31); CHLORIDE LEVEL 99 MMOL/L (98-107); CHOLESTEROL LEVEL 143 MG/DL (<200); CHOLESTEROL RISK RATIO 4.19 (<5); CREATININE FOR GFR 0.54 MG/DL (0.55-1.30); GLOMERULAR FILTRATION RATE > 60.0 (>51); GLUCOSE, FASTING 283 MG/DL (60-100); HDL CHOLESTEROL 34.1 MG/DL (>40); NON-HDL-C 108.9 MG/DL; POTASSIUM SERUM 3.7 MMOL/L (3.5-5.1); SODIUM LEVEL 135 MMOL/L (136-145); TOTAL PROTEIN 7.9 G/DL (5.7-8.2); TRIGLYCERIDES LEVEL 446 MG/DL (<150)
[2023-10-17 17:03] LABS: THYROID STIMULATING HORMONE 4.095 uIU/ML (0.55-4.78)
== END ==
LOC: M LAB REF 16:12
PROVIDERS: ATTEND Nurse Practitioner Adult Health
DX: E11.65 Type 2 diabetes mellitus with hyperglycemia (principal); E78.00 Pure hypercholesterolemia, unspecified; G62.9 Polyneuropathy, unspecified; B96.20 Unspecified Escherichia coli [E. coli] as the cause of diseases classified elsewhere

== ENCOUNTER 2024-01-19 14:24 | Inpatient (IN) | payer OTHER ==
[~2024-01-19] VITALS: Ht 160 cm; Wt 88.5 kg
[2024-01-19 14:55] LABS: VENOUS BASE EXCESS -3.7 (-2.0-2.0); VENOUS HCO3 18.5 MMOL/L (23.0-27.0); VENOUS O2 SATURATION 93.7 % (60.0-80.0); VENOUS PARTIAL PRESSURE CO2 27.9 mmHg (38.0-50.0); VENOUS PARTIAL PRESSURE O2 67.3 mmHg (30.0-50.0); VENOUS PH 7.439 UNITS (7.330-7.430); VENOUS STANDARD HCO3 21.3 MMOL/L; VENOUS TOTAL CO2 19.3 MMOL/L (24.0-28.0)
[2024-01-19] MEDS ORDERED: ISOVUE-370 76% 100ML VIAL As Ordered ONE (15:07)
[2024-01-19 15:15] LABS: BASO # 0.1 10^3/uL (0.0-0.2); BASO % 0.5 % (0.0-1.0); EOS % 0.2 % (0.0-3.0); HEMATOCRIT 49.5 % (36.0-47.0); HEMOGLOBIN 17.1 g/dl (12.0-15.5); LYMPH # 2.3 10^3/uL (1.5-5.0); LYMPH % 17.8 % (24.0-44.0); MEAN CORPUSCULAR HEMOGLOBIN 29.7 pg (27.0-33.0); MEAN CORPUSCULAR HGB CONC 34.5 g/dl (32.0-36.5); MEAN CORPUSCULAR VOLUME 85.9 fl (80.0-96.0); MONO # 0.6 10^3/uL (0.0-0.8); MONO % 4.7 % (2.0-8.0); NEUTROPHILS # 9.6 10^3/uL (1.5-8.5); NEUTROPHILS % 76.2 % (36.0-66.0); PLATELET COUNT, AUTOMATED 337 10^3/uL (150-450); RED BLOOD COUNT 5.76 10^6/uL (4.00-5.40); WHITE BLOOD COUNT 12.6 10^3/uL (4.0-10.0)
[2024-01-19 15:19] LABS: HEMOGLOBIN A1c 13.1 % (4.0-6.0)
[2024-01-19] MEDS: ONDANSETRON 4MG 2ML VIAL IV ONE (15:23)
[2024-01-19] MEDS: NS 1,000 ML IV ONE ×2 (15:23→16:04)
[2024-01-19 15:28] LABS: LIPASE 39 U/L (12-53)
[2024-01-19 15:29] LABS: CPK CREATINE PHOSPHOKINASE 54 U/L (34-145)
[2024-01-19 15:30] LABS: ACETONE/KETONE 3.69 MMOL/L (0.02-0.27); ALBUMIN 4.4 G/DL (3.2-5.2); ALKALINE PHOSPHATASE 144 U/L (46-116); ALT/SGPT 13 U/L (7.0-40); AST/SGOT 13 U/L (<34); BILIRUBIN,DIRECT 0.2 MG/DL (<0.4); BILIRUBIN,TOTAL 0.7 MG/DL (0.3-1.2); BLOOD UREA NITROGEN 9 MG/DL (9-23); CALCIUM LEVEL 10.2 MG/DL (8.5-10.1); CARBON DIOXIDE LEVEL 17 MMOL/L (20-31); CHLORIDE LEVEL 100 MMOL/L (98-107); CK-MB VALUE MASS < 1.0 NG/ML (<3.6); CREATININE FOR GFR 0.51 MG/DL (0.55-1.30); GLOMERULAR FILTRATION RATE > 60.0 (>51); GLUCOSE, FASTING 374 MG/DL (60-100); MB/CK RELATIVE INDEX 1.85 (< OR =4); POTASSIUM SERUM 3.6 MMOL/L (3.5-5.1); SODIUM LEVEL 137 MMOL/L (136-145); TOTAL PROTEIN 8.1 G/DL (5.7-8.2)
[2024-01-19 15:35] LABS: OSMOLALITY SERUM 316 MOSM/KG (275-295)
[2024-01-19 15:44] LABS: PROCALCITONIN 0.05 ng/ml
[2024-01-19] MEDS: MORPHINE 4 MG/ML 1ML VIAL IV ONE (16:04)
[2024-01-19] MEDS: PROMETHAZINE 25MG/ML 1ML VIAL IM ONE (16:04)
[2024-01-19] MEDS: hydrALAZINE 20MG/ML 1ML VIAL IV ONE (16:26)
[2024-01-19] MEDS: CIPROFLOXACIN 400 MG in IV 1 EA IV ONE (16:26)
[2024-01-19] MEDS ORDERED: INSULIN REGULAR IN 0.9 % NACL 100 UNIT in IV 1 EA IV SCH ×2 (16:50→20:20)
[2024-01-19] MEDS ORDERED: INSULIN IV RATE CHANGE DOCUMENTATION ML/HR XX SCH ×2 (16:50→17:55)
[2024-01-19] MEDS ORDERED: HumuLIN R (REGULAR) INSULIN (NovoLIN R) **100U/ML** PER UNIT IV ONE (16:50)
[2024-01-19] MEDS: HumuLIN R (REGULAR) INSULIN (NovoLIN R) **100U/ML** PER UNIT SC ONE (17:05)
[2024-01-19] MEDS ORDERED: ALBUTEROL SULFATE 2.5MG/0.5ML INH NEB SOLN NEB PRN (17:50)
[2024-01-19] MEDS ORDERED: SALIVA SUBSTITUTE(MOUTHKOTE) BTL MT PRN (17:55)
[2024-01-19] MEDS ORDERED: ACETAMINOPHEN TAB 650MG DOSE (2X325MG) PO PRN (18:05)
[2024-01-19] MEDS ORDERED: hydrALAZINE 20MG/ML 1ML VIAL IV PRN (18:15)
[2024-01-19] MEDS: KCL 20MEQ IN 0.45NS 1000ML 1,000 ML IV SCH (18:30)
[2024-01-19] MEDS: INSULIN REGULAR IN 0.9 % NACL 100 UNIT in IV 1 EA IV SCH (18:30)
[2024-01-19] MEDS: MORPHINE 2 MG/ML 1ML VIAL IV PRN (18:37)
[2024-01-19 18:52] LABS: BLOOD UREA NITROGEN 9 MG/DL (9-23); CALCIUM LEVEL 8.8 MG/DL (8.5-10.1); CALCIUM LEVEL 8.9 MG/DL (8.5-10.1); CARBON DIOXIDE LEVEL 20 MMOL/L (20-31); CARBON DIOXIDE LEVEL 21 MMOL/L (20-31); CHLORIDE LEVEL 103 MMOL/L (98-107); CHLORIDE LEVEL 104 MMOL/L (98-107); CREATININE FOR GFR 0.53 MG/DL (0.55-1.30); CREATININE FOR GFR 0.55 MG/DL (0.55-1.30); GLOMERULAR FILTRATION RATE > 60.0 (>51); GLUCOSE, FASTING 310 MG/DL (60-100); GLUCOSE, FASTING 311 MG/DL (60-100); PHOSPHORUS LEVEL 3.1 MG/DL (2.5-4.9); POTASSIUM SERUM 4.4 MMOL/L (3.5-5.1); POTASSIUM SERUM 4.7 MMOL/L (3.5-5.1); SODIUM LEVEL 141 MMOL/L (136-145)
[2024-01-19 19:45] VITALS: BP 156/84; TEMP 98; O2SAT 94
[2024-01-19] MEDS ORDERED: MED REC IN PROGRESS XX SCH (19:45)
[2024-01-19] MEDS: INSULIN IV RATE CHANGE DOCUMENTATION ML/HR XX SCH (20:00)
[2024-01-19 20:06] LABS: BLOOD UREA NITROGEN 7 MG/DL (9-23); CALCIUM LEVEL 8.9 MG/DL (8.5-10.1); CARBON DIOXIDE LEVEL 21 MMOL/L (20-31); CHLORIDE LEVEL 105 MMOL/L (98-107); CREATININE FOR GFR 0.47 MG/DL (0.55-1.30); GLOMERULAR FILTRATION RATE > 60.0 (>51); GLUCOSE, FASTING 285 MG/DL (60-100); POTASSIUM SERUM 3.8 MMOL/L (3.5-5.1); SODIUM LEVEL 141 MMOL/L (136-145)
[2024-01-19] MEDS: ONDANSETRON 4MG 2ML VIAL IV PRN (20:38)
[2024-01-19] MEDS ORDERED: INSU100I24 SC (20:50)
[2024-01-19] MEDS ORDERED: INSU100I60 SC (20:50)
[2024-01-19] MEDS ORDERED: BETA115CR TOP (20:50)
[2024-01-19] MEDS ORDERED: FLUC150T9 PO (20:50)
[2024-01-19] MEDS ORDERED: ATOR40TA75 PO (20:50)
[2024-01-19] MEDS ORDERED: ONDA4TAB6 PO (20:50)
[2024-01-19] MEDS ORDERED: ALBU8.5H INH (20:50)
[2024-01-19] MEDS ORDERED: HOME MED LIST COMPLETE! XX SCH (20:55)
[2024-01-19 21:00] VITALS: BP 189/95; O2SAT 96
[2024-01-19] MEDS: CEFEPIME HCL 2 GM in D5W MINI-BAG PLUS 50 ML IV SCH (21:15)
[2024-01-19 22:00] VITALS: BP 181/97; O2SAT 95
[2024-01-19] MEDS: HEPARIN SOD (PORCINE) 5000UNITS/ML 1ML VIAL/SYRINGE SC SCH (22:00)
[2024-01-19] MEDS: METOCLOPRAMIDE INJ 10MG/2ML VIAL IV PRN (22:13)
[2024-01-19 22:34] LABS: BLOOD UREA NITROGEN 8 MG/DL (9-23); CARBON DIOXIDE LEVEL 22 MMOL/L (20-31); CHLORIDE LEVEL 104 MMOL/L (98-107); CREATININE FOR GFR 0.46 MG/DL (0.55-1.30); GLOMERULAR FILTRATION RATE > 60.0 (>51); GLUCOSE, FASTING 244 MG/DL (60-100); POTASSIUM SERUM 3.9 MMOL/L (3.5-5.1); SODIUM LEVEL 141 MMOL/L (136-145)
[2024-01-19] MEDS: tiZANidine 4 MG TAB PO SCH (22:36)
[2024-01-19 23:00] VITALS: BP 153/86; O2SAT 96
[2024-01-20] VITALS (13 sets, daily range): BP systolic 87–120; BP diastolic 48–74; TEMP 97.9–100; O2SAT 93–95
[2024-01-20 01:35] LABS: BLOOD UREA NITROGEN 8 MG/DL (9-23); CALCIUM LEVEL 8.3 MG/DL (8.5-10.1); CARBON DIOXIDE LEVEL 22 MMOL/L (20-31); CHLORIDE LEVEL 106 MMOL/L (98-107); CREATININE FOR GFR 0.49 MG/DL (0.55-1.30); GLOMERULAR FILTRATION RATE > 60.0 (>51); GLUCOSE, FASTING 202 MG/DL (60-100); SODIUM LEVEL 140 MMOL/L (136-145)
[2024-01-20] MEDS: LEVEMIR (INSULIN DETEMIR) 1 UNITS/0.01ML SC SCH (02:08)
[2024-01-20 05:22] LABS: HEMATOCRIT 40.8 % (36.0-47.0); MEAN CORPUSCULAR HEMOGLOBIN 30.2 pg (27.0-33.0); MEAN CORPUSCULAR HGB CONC 33.6 g/dl (32.0-36.5); MEAN CORPUSCULAR VOLUME 90.1 fl (80.0-96.0); PLATELET COUNT, AUTOMATED 263 10^3/uL (150-450); RED BLOOD COUNT 4.53 10^6/uL (4.00-5.40); WHITE BLOOD COUNT 11.7 10^3/uL (4.0-10.0)
[2024-01-20 05:23] LABS: BLOOD UREA NITROGEN 11 MG/DL (9-23); CALCIUM LEVEL 8.2 MG/DL (8.5-10.1); CARBON DIOXIDE LEVEL 22 MMOL/L (20-31); CHLORIDE LEVEL 106 MMOL/L (98-107); CREATININE FOR GFR 0.62 MG/DL (0.55-1.30); GLOMERULAR FILTRATION RATE > 60.0 (>51); GLUCOSE, FASTING 298 MG/DL (60-100); POTASSIUM SERUM 3.8 MMOL/L (3.5-5.1); SODIUM LEVEL 140 MMOL/L (136-145)
[2024-01-20 05:26] LABS: HEMOGLOBIN 13.7 g/dl (12.0-15.5)
[2024-01-20] MEDS ORDERED: tiZANidine 4 MG TAB PO SCH (06:00)
[2024-01-20] MEDS ORDERED: LIDOCAINE 5% (LIDODERM) PATCH TD SCH (09:00)
[2024-01-20] MEDS ORDERED: PROCHLORPERAZINE 10MG 2ML VIAL IM PRN (09:50)
[2024-01-20] MEDS: ACETAMINOPHEN TAB 650MG DOSE (2X325MG) PO PRN (11:48)
[2024-01-20] MEDS: SUCRALFATE 1 GM TAB PO SCH (11:49)
[2024-01-20] MEDS ORDERED: INSULIN LISPRO (NovoLOG) PER UNIT SC SCH (12:00)
[2024-01-20] MEDS: INSULIN LISPRO (NovoLOG) PER UNIT SC ONE ×3 (12:49→20:34)
[2024-01-20] MEDS: LR 1,000 ML IV ONE (14:36)
[2024-01-20] MEDS: INSULIN LISPRO (NovoLOG) PER UNIT SC SCH (18:27)
[2024-01-20] MEDS: PANTOPRAZOLE 40MG VIAL IV SCH (20:35)
[2024-01-20] MEDS: MIRALAX *UNIT DOSE* 17GM PACKET PO PRN (20:35)
[2024-01-21] VITALS (8 sets, daily range): BP systolic 109–180; BP diastolic 60–89; TEMP 96.1–97.8; O2SAT 83–97
[2024-01-21] MEDS: INSULIN LISPRO (NovoLOG) PER UNIT SC ONE (01:17)
[2024-01-21] MEDS: NORCO, ANEXSIA 5/325MG TABLET (HYDROcodone/ACETAMINOPHEN) PO ONE (01:18)
[2024-01-21 06:00] LABS: HEMOGLOBIN 14.5 g/dl (12.0-15.5); MEAN CORPUSCULAR HGB CONC 33.7 g/dl (32.0-36.5); PLATELET COUNT, AUTOMATED 218 10^3/uL (150-450); RED BLOOD COUNT 4.83 10^6/uL (4.00-5.40); WHITE BLOOD COUNT 7.3 10^3/uL (4.0-10.0)
[2024-01-21 06:30] LABS: BLOOD UREA NITROGEN 10 MG/DL (9-23); CARBON DIOXIDE LEVEL 25 MMOL/L (20-31); CHLORIDE LEVEL 107 MMOL/L (98-107); CREATININE FOR GFR 0.48 MG/DL (0.55-1.30); GLOMERULAR FILTRATION RATE > 60.0 (>51); GLUCOSE, FASTING 164 MG/DL (60-100); POTASSIUM SERUM 3.3 MMOL/L (3.5-5.1); SODIUM LEVEL 143 MMOL/L (136-145)
[2024-01-21] MEDS: POTASSIUM CHLORIDE 10MEQ SR TABLET PO ONE (08:45)
[2024-01-21] MEDS: METHENAMINE HIPPURATE 1GM TABLET PO SCH (08:45)
[2024-01-21] MEDS: ATORVASTATIN 20 MG TAB PO SCH (08:46)
[2024-01-21] MEDS: INSULIN LISPRO (NovoLOG) PER UNIT SC SCH (08:47)
[2024-01-21] MEDS: MORPHINE 4 MG/ML 1ML VIAL IV ONE (13:30)
[2024-01-21] MEDS: INFLUENZA QUADRIVALENT PF VACCINE 0.5ML SYRINGE IM.IMMUN ONE (14:50)
[2024-01-21] MEDS: ONDANSETRON 4MG ORAL DISINTEGRATING TAB PO PRN (15:42)
[2024-01-21] MEDS ORDERED: methylPREDNISolone 125MG 2ML VIAL IV ONE (16:35)
[2024-01-21] MEDS: LIDOCAINE 5% (LIDODERM) PATCH TD SCH (17:07)
[2024-01-21] MEDS: diphenhydrAMINE 50MG/ML VIAL IV STA (17:07)
[2024-01-21] MEDS: KETOROLAC 30 MG/ML 1ML VIAL IV SCH (17:07)
[2024-01-21] MEDS: CIPROFLOXACIN 250MG TAB PO SCH (17:21)
[2024-01-21] MEDS: AMITRIPTYLINE 10MG TABLET PO SCH (17:21)
[2024-01-21] MEDS ORDERED: ACETAMINOPHEN TAB 650MG DOSE (2X325MG) PO SCH (18:00)
[2024-01-21] MEDS: ACETAMINOPHEN 500 MG TAB PO SCH (18:15)
[2024-01-21] MEDS: diphenhydrAMINE 50MG/ML VIAL IV ONE (23:18)
[2024-01-21] MEDS: TRIAMCINOLONE ACET 0.1% CREAM 15GM TOP PRN (23:51)
[2024-01-21] MEDS: amLODIPine 5 MG TAB PO ONE (23:51)
[2024-01-22] MEDS: NORCO, ANEXSIA 5/325MG TABLET (HYDROcodone/ACETAMINOPHEN) PO ONE (01:13)
[2024-01-22 02:00] VITALS: BP 160/70
[2024-01-22 05:41] VITALS: BP 170/72; TEMP 97.5; O2SAT 94
[2024-01-22 06:17] LABS: HEMATOCRIT 42.9 % (36.0-47.0); HEMOGLOBIN 14.8 g/dl (12.0-15.5); MEAN CORPUSCULAR HEMOGLOBIN 30.2 pg (27.0-33.0); MEAN CORPUSCULAR HGB CONC 34.5 g/dl (32.0-36.5); MEAN CORPUSCULAR VOLUME 87.6 fl (80.0-96.0); PLATELET COUNT, AUTOMATED 252 10^3/uL (150-450); WHITE BLOOD COUNT 8.3 10^3/uL (4.0-10.0)
[2024-01-22 06:46] LABS: BLOOD UREA NITROGEN 7 MG/DL (9-23); CALCIUM LEVEL 8.8 MG/DL (8.5-10.1); CARBON DIOXIDE LEVEL 25 MMOL/L (20-31); CHLORIDE LEVEL 103 MMOL/L (98-107); GLOMERULAR FILTRATION RATE > 60.0 (>51); GLUCOSE, FASTING 193 MG/DL (60-100); POTASSIUM SERUM 3.8 MMOL/L (3.5-5.1); SODIUM LEVEL 138 MMOL/L (136-145)
[2024-01-22] MEDS ORDERED: GLUCOSE 4GM CHEW TABLET PO PRN (07:10)
[2024-01-22] MEDS ORDERED: GLUCAGON INJ 1MG VIAL SC PRN (07:10)
[2024-01-22] MEDS ORDERED: DEXTROSE 50% 50ML SYRINGE IV PRN (07:10)
[2024-01-22 08:52] LABS: LIPASE 36 U/L (12-53)
[2024-01-22] MEDS ORDERED: tiZANidine 4 MG TAB PO SCH (09:00)
[2024-01-22] MEDS: INSULIN LISPRO (NovoLOG) PER UNIT SC SCH ×2 (09:57→21:19)
[2024-01-22] MEDS: CYCLOBENZAPRINE 5MG TABLET PO ONE ×2 (11:50→11:57)
[2024-01-22 14:00] VITALS: BP 170/80; TEMP 99.5; O2SAT 94
[2024-01-22 16:30] VITALS: BP 168/83
[2024-01-22 20:19] VITALS: BP 152/84; TEMP 98; O2SAT 95
[2024-01-22] MEDS: LEVEMIR (INSULIN DETEMIR) 1 UNITS/0.01ML SC SCH (21:20)
[2024-01-22] MEDS: tiZANidine 4 MG TAB PO SCH (21:21)
[2024-01-22] MEDS: CEFDINIR 300 MG CAP (OMNICEF) PO SCH (21:21)
[2024-01-23 05:58] LABS: HEMATOCRIT 42.7 % (36.0-47.0); HEMOGLOBIN 14.3 g/dl (12.0-15.5); MEAN CORPUSCULAR HGB CONC 33.5 g/dl (32.0-36.5); MEAN CORPUSCULAR VOLUME 89.7 fl (80.0-96.0); PLATELET COUNT, AUTOMATED 248 10^3/uL (150-450); RED BLOOD COUNT 4.76 10^6/uL (4.00-5.40); WHITE BLOOD COUNT 7.2 10^3/uL (4.0-10.0)
[2024-01-23 06:00] VITALS: BP 126/85; TEMP 97.3; O2SAT 94
[2024-01-23 06:21] LABS: BLOOD UREA NITROGEN 9 MG/DL (9-23); CALCIUM LEVEL 9.2 MG/DL (8.5-10.1); CARBON DIOXIDE LEVEL 28 MMOL/L (20-31); CHLORIDE LEVEL 103 MMOL/L (98-107); CREATININE FOR GFR 0.41 MG/DL (0.55-1.30); GLOMERULAR FILTRATION RATE > 60.0 (>51); GLUCOSE, FASTING 208 MG/DL (60-100); POTASSIUM SERUM 3.5 MMOL/L (3.5-5.1); SODIUM LEVEL 140 MMOL/L (136-145)
[2024-01-23 08:00] VITALS: BP 108/76; TEMP 97.2; O2SAT 90
[2024-01-23 09:00] VITALS: BP 108/72
[2024-01-23] MEDS ORDERED: CEFD300CAP PO ×2 (10:37→11:14)
[2024-01-23] MEDS ORDERED: INSU100I60 SC ×2 (10:37→11:14)
[2024-01-23] MEDS ORDERED: PANT40TA29 PO ×2 (10:37→11:14)
[2024-01-23] MEDS ORDERED: AMIT10TA7 PO ×2 (10:37→11:14)
[2024-01-23] MEDS ORDERED: SUCR1TA PO ×2 (10:37→11:14)
[2024-01-23] MEDS ORDERED: INSUHUMDS SC ×2 (10:37→11:14)
[2024-01-23] MEDS ORDERED: MIRA3350 PO ×2 (10:39→11:14)
== END 2024-01-23 12:58 | disposition home or self-care (01) | DRG 420 ==
LOC: M ED 14:24 → EDBD 14:24 → EDBEDREQSVC 17:02 → M ED INP 17:46 → ENRESERV 19:20 → M ICU 19:50 → M MSPAV 01-20 11:21
PROVIDERS: ADMIT Internal Medicine Pulmonary Disease; ATTEND Student in an Organized Health Care Education/Training Program
DX: E11.10 Type 2 diabetes mellitus with ketoacidosis without coma (principal); K22.6 Gastro-esophageal laceration-hemorrhage syndrome; K92.0 Hematemesis; N30.90 Cystitis, unspecified without hematuria; E78.5 Hyperlipidemia, unspecified; I10 Essential (primary) hypertension; J45.909 Unspecified asthma, uncomplicated; K21.9 Gastro-esophageal reflux disease without esophagitis; E66.9 Obesity, unspecified; N39.0 Urinary tract infection, site not specified; Z88.0 Allergy status to penicillin; Z91.030 Bee allergy status; Z88.5 Allergy status to narcotic agent; Z88.8 Allergy status to other drugs, medicaments and biological substances; Z79.899 Other long term (current) drug therapy; Z79.4 Long term (current) use of insulin; G43.909 Migraine, unspecified, not intractable, without status migrainosus; Z91.148 Patient's other noncompliance with medication regimen for other reason; E11.319 Type 2 diabetes mellitus with unspecified diabetic retinopathy without macular edema

== ENCOUNTER → 2024-01-31 | Outpatient (REF) | payer OTHER, MEDICAID ==
[~2024-01-31] MED LIST changes: +ALBU8.5H INH; +AMIT10TA7 PO; +ATOR40TA75 PO; +BETA115CR TOP; +CEFD300CAP PO; +FLUC150T9 PO; +INSU100I24 SC; +INSU100I60 SC; +INSUHUMDS SC; +MIRA3350 PO; +ONDA4TAB6 PO; +SUCR1TA PO
== END ==
LOC: M LAB REF 16:19
PROVIDERS: ATTEND Nurse Practitioner Adult Health
DX: E11.65 Type 2 diabetes mellitus with hyperglycemia (principal); Z79.4 Long term (current) use of insulin

== ENCOUNTER → 2024-02-08 | Outpatient (REF) | payer OTHER, MEDICAID ==
[2024-02-09 07:11] LABS: LDL DIRECT 30 mg/dL (0-99)
== END ==
LOC: M LAB REF 12:45
PROVIDERS: ATTEND Nurse Practitioner Adult Health
DX: E78.00 Pure hypercholesterolemia, unspecified (principal)

== ENCOUNTER 2024-05-18 15:55 | Inpatient (IN) | payer MEDICAID, OTHER ==
[~2024-05-18] VITALS: Ht 160 cm; Wt 88.2 kg
[~2024-05-18 15:55] MED LIST changes: +ONDA-282 PO; -ONDA4TAB6 PO
[2024-05-18 16:18] LABS: BASO # 0.1 10^3/uL (0.0-0.2); BASO % 0.5 % (0.0-1.0); EOS # 0.2 10^3/uL (0.0-0.5); EOS % 1.9 % (0.0-3.0); HEMATOCRIT 42.6 % (36.0-47.0); HEMOGLOBIN 14.9 g/dl (12.0-15.5); LYMPH % 31.5 % (24.0-44.0); MEAN CORPUSCULAR HEMOGLOBIN 30.1 pg (27.0-33.0); MEAN CORPUSCULAR VOLUME 86.1 fl (80.0-96.0); MONO # 0.5 10^3/uL (0.0-0.8); MONO % 5.6 % (2.0-8.0); NEUTROPHILS # 5.8 10^3/uL (1.5-8.5); NEUTROPHILS % 60.2 % (36.0-66.0); PLATELET COUNT, AUTOMATED 257 10^3/uL (150-450); RED BLOOD COUNT 4.95 10^6/uL (4.00-5.40); WHITE BLOOD COUNT 9.6 10^3/uL (4.0-10.0)
[2024-05-18 16:52] LABS: BLOOD UREA NITROGEN 14 MG/DL (9-23); CALCIUM LEVEL 9.8 MG/DL (8.5-10.1); CARBON DIOXIDE LEVEL 23 MMOL/L (20-31); CHLORIDE LEVEL 104 MMOL/L (98-107); CREATININE FOR GFR 0.57 MG/DL (0.55-1.30); GLOMERULAR FILTRATION RATE > 60.0 (>51); GLUCOSE, FASTING 281 MG/DL (60-100); POTASSIUM SERUM 4.2 MMOL/L (3.5-5.1); SODIUM LEVEL 136 MMOL/L (136-145)
[2024-05-18 17:19] LABS: HCG, SERUM QUALITATIVE NEGATIVE (NEGATIVE)
[2024-05-18] MEDS: tiZANidine 4 MG TAB PO ONE (18:45)
[2024-05-18] MEDS ORDERED: ISOVUE-370 76% 100ML VIAL As Ordered ONE (18:48)
[2024-05-18] MEDS: ONDANSETRON 4MG 2ML VIAL IV ONE ×2 (18:54→22:19)
[2024-05-18] MEDS: NS 1,000 ML IV SCH (18:54)
[2024-05-18 19:00] LABS: LIPASE 33 U/L (12-53)
[2024-05-18 19:01] LABS: CK-MB VALUE MASS < 1.0 NG/ML (<3.6)
[2024-05-18 19:02] LABS: ALKALINE PHOSPHATASE 112 U/L (46-116); ALT/SGPT 13 U/L (7.0-40); AST/SGOT 8 U/L (<34); BILIRUBIN,DIRECT 0.1 MG/DL (<0.4); BILIRUBIN,TOTAL 0.6 MG/DL (0.3-1.2); TOTAL PROTEIN 7.5 G/DL (5.7-8.2)
[2024-05-18 19:07] LABS: CPK CREATINE PHOSPHOKINASE 79 U/L (34-145); MB/CK RELATIVE INDEX 1.26 (< OR =4)
[2024-05-18] MEDS: LevoFLOXacin IV 750 MG in IV 1 EA IV ONE (19:25)
[2024-05-18 19:37] LABS: CK-MB VALUE MASS < 1.0 NG/ML (<3.6)
[2024-05-18 19:38] LABS: CPK CREATINE PHOSPHOKINASE 77 U/L (34-145); MB/CK RELATIVE INDEX 1.29 (< OR =4)
[2024-05-18] MEDS: MORPHINE 4 MG/ML 1ML VIAL IV ONE (20:45)
[2024-05-18] MEDS ORDERED: PANTOPRAZOLE 40MG VIAL IV STA (22:57)
[2024-05-18] MEDS ORDERED: GLUCAGON INJ 1MG VIAL SC PRN (23:00)
[2024-05-18] MEDS ORDERED: DEXTROSE 50% 50ML SYRINGE IV PRN (23:00)
[2024-05-18] MEDS ORDERED: HYDROMORPHONE HCL 0.5 MG/ 0.5 ML SYRINGE IV PRN (23:00)
[2024-05-18] MEDS ORDERED: GLUCOSE 4 GM CHEW PO PRN (23:00)
[2024-05-18] MEDS: cefTRIAXone SOD 1 GM in D5W MINI-BAG PLUS 50 ML IV STA (23:17)
[2024-05-18] MEDS: PANTOPRAZOLE 40MG VIAL IV ONE (23:17)
[2024-05-18] MEDS: METOCLOPRAMIDE INJ 10MG/2ML VIAL IV ONE (23:17)
[2024-05-18] MEDS: HYDROMORPHONE HCL 0.5 MG/ 0.5 ML SYRINGE IV PRN (23:19)
[2024-05-18] MEDS: LORazepam 2 MG/ML 1ML VIAL IV STA (23:19)
[2024-05-18] MEDS: LABETALOL 100MG/20ML VIAL IV PRN (23:24)
[2024-05-19] MEDS: INSULIN LISPRO (NovoLOG) PER UNIT SC SCH
[2024-05-19 00:03] LABS: HEMOGLOBIN A1c 12.3 % (4.0-6.0)
[2024-05-19] MEDS ORDERED: ATOR80TA59 PO (00:05)
[2024-05-19] MEDS ORDERED: INSU100I24 INJ (00:05)
[2024-05-19] MEDS ORDERED: INSU100I60 SQ (00:05)
[2024-05-19] MEDS ORDERED: EPIN0.3I11 INJ (00:08)
[2024-05-19] MEDS ORDERED: ONDA-284 PO (00:08)
[2024-05-19] MEDS ORDERED: ACET650T61 PO (00:10)
[2024-05-19] MEDS ORDERED: HOME MED LIST COMPLETE! XX SCH (00:10)
[2024-05-19] MEDS: KCL 20MEQ in NS 1000ML 1,000 ML IV SCH (00:30)
[2024-05-19] MEDS: metroNIDAZOLE 500 MG in IV 1 EA IV SCH (00:30)
[2024-05-19] MEDS ORDERED: ACET500T15 PO (00:32)
[2024-05-19] MEDS ORDERED: ALBUTEROL 90 MCG/ACT 8GM HFA INHALER INH PRN (02:45)
[2024-05-19 03:25] LABS: BLOOD UREA NITROGEN 13 MG/DL (9-23); CALCIUM LEVEL 9.3 MG/DL (8.5-10.1); CARBON DIOXIDE LEVEL 24 MMOL/L (20-31); CHLORIDE LEVEL 103 MMOL/L (98-107); CREATININE FOR GFR 0.54 MG/DL (0.55-1.30); GLOMERULAR FILTRATION RATE > 60.0 (>51); GLUCOSE, FASTING 214 MG/DL (60-100); MAGNESIUM LEVEL 1.4 MG/DL (1.8-2.4); POTASSIUM SERUM 3.7 MMOL/L (3.5-5.1); SODIUM LEVEL 136 MMOL/L (136-145)
[2024-05-19 05:01] LABS: HEMATOCRIT 43.4 % (36.0-47.0); HEMOGLOBIN 14.8 g/dl (12.0-15.5); MEAN CORPUSCULAR HGB CONC 34.1 g/dl (32.0-36.5); PLATELET COUNT, AUTOMATED 258 10^3/uL (150-450); RED BLOOD COUNT 4.93 10^6/uL (4.00-5.40); WHITE BLOOD COUNT 11.1 10^3/uL (4.0-10.0)
[2024-05-19 05:24] LABS: PROCALCITONIN 0.05 ng/ml
[2024-05-19 05:29] LABS: ALBUMIN 3.7 G/DL (3.2-5.2); ALKALINE PHOSPHATASE 95 U/L (46-116); ALT/SGPT 12 U/L (7.0-40); AST/SGOT 17 U/L (<34); BILIRUBIN,TOTAL 0.5 MG/DL (0.3-1.2); BLOOD UREA NITROGEN 13 MG/DL (9-23); CALCIUM LEVEL 8.8 MG/DL (8.5-10.1); CARBON DIOXIDE LEVEL 21 MMOL/L (20-31); CHLORIDE LEVEL 106 MMOL/L (98-107); CREATININE FOR GFR 0.48 MG/DL (0.55-1.30); GLOMERULAR FILTRATION RATE > 60.0 (>51); GLUCOSE, FASTING 233 MG/DL (60-100); MAGNESIUM LEVEL 1.4 MG/DL (1.8-2.4); POTASSIUM SERUM 4.3 MMOL/L (3.5-5.1); SODIUM LEVEL 139 MMOL/L (136-145); TOTAL PROTEIN 7.1 G/DL (5.7-8.2)
[2024-05-19] MEDS: ATORVASTATIN 20 MG TAB PO SCH (08:19)
[2024-05-19] MEDS: tiZANidine 4 MG TAB PO SCH (08:19)
[2024-05-19] MEDS: MAG SULF 1GM/100ML (MAG RUN) 1 GM in IV 1 EA IV SCH (08:20)
[2024-05-19] MEDS: PANTOPRAZOLE 40MG VIAL IV SCH (09:00)
[2024-05-19 09:05] VITALS: BP 198/102; TEMP 97.4; O2SAT 97
[2024-05-19] MEDS: LEVEMIR (INSULIN DETEMIR) 1 UNITS/0.01ML SC SCH (10:01)
[2024-05-19 10:04] VITALS: BP 187/91
[2024-05-19] MEDS: METOCLOPRAMIDE INJ 10MG/2ML VIAL IV SCH (10:10)
[2024-05-19 11:30] VITALS: BP 150/72; O2SAT 97
[2024-05-19] MEDS: cefTRIAXone SOD 1 GM in D5W MINI-BAG PLUS 50 ML IV SCH (11:30)
[2024-05-19 12:12] VITALS: BP 157/82; TEMP 98.6; O2SAT 99
[2024-05-19 16:17] VITALS: BP 114/57; TEMP 97.9; O2SAT 93
[2024-05-19] MEDS: **hydrALAZINE HCL** 25 MG TAB PO SCH (17:44)
[2024-05-19] MEDS: HYDROMORPHONE HCL 0.5 MG/ 0.5 ML SYRINGE IV PRN (17:46)
[2024-05-19 20:19] VITALS: BP 95/63; TEMP 97.3; O2SAT 92
[2024-05-20] VITALS (8 sets, daily range): BP systolic 88–158; BP diastolic 50–90; TEMP 97.2–97.9; O2SAT 90–98
[2024-05-20] MEDS: NS 1,000 ML IV SCH (02:02)
[2024-05-20] MEDS: NYSTATIN 100,000 UNITS/GM TOPICAL PWD 15GM TOP PRN (06:06)
[2024-05-20 06:58] LABS: BLOOD UREA NITROGEN 7 MG/DL (9-23); CALCIUM LEVEL 8.7 MG/DL (8.5-10.1); CARBON DIOXIDE LEVEL 25 MMOL/L (20-31); CHLORIDE LEVEL 109 MMOL/L (98-107); CREATININE FOR GFR 0.57 MG/DL (0.55-1.30); GLOMERULAR FILTRATION RATE > 60.0 (>51); GLUCOSE, FASTING 171 MG/DL (60-100); POTASSIUM SERUM 3.5 MMOL/L (3.5-5.1); SODIUM LEVEL 141 MMOL/L (136-145)
[2024-05-20 07:00] LABS: BASO % 0.5 % (0.0-1.0); EOS # 0.3 10^3/uL (0.0-0.5); EOS % 5.6 % (0.0-3.0); HEMATOCRIT 43.8 % (36.0-47.0); HEMOGLOBIN 14.1 g/dl (12.0-15.5); LYMPH # 2.2 10^3/uL (1.5-5.0); LYMPH % 35.9 % (24.0-44.0); MEAN CORPUSCULAR HEMOGLOBIN 29.3 pg (27.0-33.0); MEAN CORPUSCULAR HGB CONC 32.2 g/dl (32.0-36.5); MEAN CORPUSCULAR VOLUME 91.1 fl (80.0-96.0); MONO # 0.5 10^3/uL (0.0-0.8); MONO % 7.4 % (2.0-8.0); NEUTROPHILS % 49.9 % (36.0-66.0); PLATELET COUNT, AUTOMATED 234 10^3/uL (150-450); RED BLOOD COUNT 4.81 10^6/uL (4.00-5.40); WHITE BLOOD COUNT 6.1 10^3/uL (4.0-10.0)
[2024-05-20] MEDS: amLODIPine 5 MG TAB PO SCH (08:23)
[2024-05-20] MEDS: HYDROMORPHONE HCL 0.5 MG/ 0.5 ML SYRINGE IV PRN (20:26)
[2024-05-21] VITALS (7 sets, daily range): BP systolic 110–192; BP diastolic 58–108; TEMP 97.3–99.6; O2SAT 93–97
[2024-05-21] MEDS: ONDANSETRON 4MG ORAL DISINTEGRATING TAB PO PRN (04:43)
[2024-05-21] MEDS ORDERED: BISACODYL 10MG SUPP PR PRN (06:00)
[2024-05-21] MEDS: ACETAMINOPHEN *IV* 1,000 MG in IV 1 EA IV ONE (06:22)
[2024-05-21 06:43] LABS: BASO # 0.1 10^3/uL (0.0-0.2); BASO % 0.6 % (0.0-1.0); EOS # 0.3 10^3/uL (0.0-0.5); EOS % 3.4 % (0.0-3.0); HEMATOCRIT 45.5 % (36.0-47.0); HEMOGLOBIN 15.3 g/dl (12.0-15.5); LYMPH # 1.9 10^3/uL (1.5-5.0); LYMPH % 22.3 % (24.0-44.0); MEAN CORPUSCULAR HEMOGLOBIN 29.9 pg (27.0-33.0); MEAN CORPUSCULAR HGB CONC 33.6 g/dl (32.0-36.5); MEAN CORPUSCULAR VOLUME 88.9 fl (80.0-96.0); MONO # 0.6 10^3/uL (0.0-0.8); NEUTROPHILS # 5.7 10^3/uL (1.5-8.5); NEUTROPHILS % 66.4 % (36.0-66.0); PLATELET COUNT, AUTOMATED 233 10^3/uL (150-450); RED BLOOD COUNT 5.12 10^6/uL (4.00-5.40); WHITE BLOOD COUNT 8.6 10^3/uL (4.0-10.0)
[2024-05-21 07:28] LABS: BLOOD UREA NITROGEN < 5 MG/DL (9-23); CALCIUM LEVEL 8.3 MG/DL (8.5-10.1); CARBON DIOXIDE LEVEL 22 MMOL/L (20-31); CHLORIDE LEVEL 107 MMOL/L (98-107); CREATININE FOR GFR 0.42 MG/DL (0.55-1.30); GLOMERULAR FILTRATION RATE > 60.0 (>51); GLUCOSE, FASTING 189 MG/DL (60-100); POTASSIUM SERUM 3.4 MMOL/L (3.5-5.1); SODIUM LEVEL 141 MMOL/L (136-145)
[2024-05-21] MEDS ORDERED: FUROSEMIDE 20MG/2ML VIAL IV ONE (08:25)
[2024-05-21] MEDS: POTASSIUM CHLORIDE 10MEQ SR TABLET PO ONE (08:41)
[2024-05-21] MEDS ORDERED: ACETAMINOPHEN TAB 650MG DOSE (2X325MG) PO PRN (11:00)
[2024-05-21] MEDS ORDERED: METOCLOPRAMIDE INJ 10MG/2ML VIAL IV SCH (12:00)
[2024-05-21] MEDS: SUCRALFATE SUSP 1GM/10ML UD PO SCH (12:23)
[2024-05-21] MEDS: PERCOCET 5MG/325MG TAB PO PRN (20:50)
[2024-05-21] MEDS: LEVEMIR (INSULIN DETEMIR) 1 UNITS/0.01ML SC SCH (20:52)
[2024-05-21] MEDS: INSULIN LISPRO (NovoLOG) PER UNIT SC SCH (20:52)
[2024-05-22] MEDS: traMADol 50 MG TAB PO PRN (00:55)
[2024-05-22] MEDS: CYCLOBENZAPRINE 5MG TABLET PO ONE (02:32)
[2024-05-22 04:00] VITALS: BP 179/90; TEMP 97.9; O2SAT 96
[2024-05-22 05:30] VITALS: O2SAT 96
[2024-05-22] MEDS: MIRALAX *UNIT DOSE* 17GM PACKET PO PRN (05:50)
[2024-05-22 06:10] LABS: BASO # 0.1 10^3/uL (0.0-0.2); BASO % 0.9 % (0.0-1.0); EOS # 0.3 10^3/uL (0.0-0.5); EOS % 5.1 % (0.0-3.0); HEMATOCRIT 43.3 % (36.0-47.0); HEMOGLOBIN 14.8 g/dl (12.0-15.5); LYMPH # 1.7 10^3/uL (1.5-5.0); LYMPH % 31.4 % (24.0-44.0); MEAN CORPUSCULAR HEMOGLOBIN 30.3 pg (27.0-33.0); MEAN CORPUSCULAR HGB CONC 34.2 g/dl (32.0-36.5); MEAN CORPUSCULAR VOLUME 88.5 fl (80.0-96.0); MONO # 0.4 10^3/uL (0.0-0.8); NEUTROPHILS # 3.1 10^3/uL (1.5-8.5); NEUTROPHILS % 55.1 % (36.0-66.0); PLATELET COUNT, AUTOMATED 232 10^3/uL (150-450); RED BLOOD COUNT 4.89 10^6/uL (4.00-5.40); WHITE BLOOD COUNT 5.5 10^3/uL (4.0-10.0)
[2024-05-22 06:39] LABS: BLOOD UREA NITROGEN < 5 MG/DL (9-23); CALCIUM LEVEL 8.7 MG/DL (8.5-10.1); CARBON DIOXIDE LEVEL 24 MMOL/L (20-31); CHLORIDE LEVEL 108 MMOL/L (98-107); CREATININE FOR GFR 0.47 MG/DL (0.55-1.30); GLOMERULAR FILTRATION RATE > 60.0 (>51); GLUCOSE, FASTING 181 MG/DL (60-100); MAGNESIUM LEVEL 1.5 MG/DL (1.8-2.4); POTASSIUM SERUM 3.5 MMOL/L (3.5-5.1); SODIUM LEVEL 141 MMOL/L (136-145)
[2024-05-22 06:54] VITALS: BP 95/52
[2024-05-22] MEDS: INSULIN LISPRO (NovoLOG) PER UNIT SC SCH ×2 (08:11→08:12)
[2024-05-22] MEDS: LEVEMIR (INSULIN DETEMIR) 1 UNITS/0.01ML SC SCH (08:12)
[2024-05-22] MEDS: MAGNESIUM OXIDE 400MG TAB (MAG-OX) PO SCH (08:13)
[2024-05-22] MEDS: MAG SULF 1GM/100ML (MAG RUN) 1 GM in IV 1 EA IV SCH (08:13)
[2024-05-22] MEDS: ENOXAPARIN 40MG/0.4ML SYRINGE (J1650 PER 10MG) SC SCH (08:13)
[2024-05-22] MEDS: POTASSIUM CHLORIDE 10MEQ SR TABLET PO ONE (08:14)
[2024-05-22] MEDS ORDERED: SUCR1TA PO (11:55)
[2024-05-22] MEDS ORDERED: AMLO25TA PO (11:55)
[2024-05-22] MEDS ORDERED: ONDA-282 PO (11:55)
[2024-05-22] MEDS ORDERED: MAGN400T2 PO (11:55)
[2024-05-22] MEDS ORDERED: REGL5TAB2 PO (11:55)
[2024-05-22 12:00] VITALS: BP 95/52
[2024-05-22] MEDS ORDERED: INSU100I60 SQ (12:06)
[2024-05-22] MEDS ORDERED: INSU100I24 INJ (13:36)
== END 2024-05-22 17:00 | disposition home or self-care (01) | DRG 48 ==
LOC: EDBD 15:55 → M ED 15:55 → M ED INP 22:52 → M MS4PR 05-19 09:13 → M MS5PR 05-19 17:20
PROVIDERS: ADMIT Preventive Medicine Undersea and Hyperbaric Medicine; ATTEND Internal Medicine
DX: E11.43 Type 2 diabetes mellitus with diabetic autonomic (poly)neuropathy (principal); I10 Essential (primary) hypertension; N39.0 Urinary tract infection, site not specified; B96.20 Unspecified Escherichia coli [E. coli] as the cause of diseases classified elsewhere; E87.6 Hypokalemia; R94.31 Abnormal electrocardiogram [ECG] [EKG]; E66.9 Obesity, unspecified; G43.909 Migraine, unspecified, not intractable, without status migrainosus; M54.59 Other low back pain; Z88.0 Allergy status to penicillin; Z91.030 Bee allergy status; Z88.8 Allergy status to other drugs, medicaments and biological substances; Z79.899 Other long term (current) drug therapy; Z79.4 Long term (current) use of insulin; M62.838 Other muscle spasm; E11.319 Type 2 diabetes mellitus with unspecified diabetic retinopathy without macular edema

== ENCOUNTER 2024-05-23 08:46 | Emergency (ER) | payer OTHER ==
[~2024-05-23] VITALS: Ht 167.6 cm; Wt 89.5 kg
[~2024-05-23 08:46] MED LIST changes: +ACET500T15 PO; +ACET650T61 PO; +AMLO25TA PO; +ATOR80TA59 PO; +EPIN0.3I11 INJ; +INSU100I24 INJ; +INSU100I60 SQ; +MAGN400T2 PO; +ONDA-284 PO; +REGL5TAB2 PO
[2024-05-23 08:58] VITALS: TEMP 96.5
[2024-05-23] MEDS: NS 1,000 ML IV ONE (09:31)
[2024-05-23] MEDS: METOCLOPRAMIDE INJ 10MG/2ML VIAL IV ONE (09:31)
[2024-05-23] MEDS: diazePAM 10MG/2ML SYRINGE IV ONE (09:31)
[2024-05-23 09:43] LABS: BASO # 0.1 10^3/uL (0.0-0.2); BASO % 0.7 % (0.0-1.0); EOS # 0.1 10^3/uL (0.0-0.5); EOS % 1.6 % (0.0-3.0); HEMATOCRIT 48.1 % (36.0-47.0); HEMOGLOBIN 16.7 g/dl (12.0-15.5); LYMPH # 1.7 10^3/uL (1.5-5.0); LYMPH % 24.9 % (24.0-44.0); MEAN CORPUSCULAR HEMOGLOBIN 29.6 pg (27.0-33.0); MEAN CORPUSCULAR HGB CONC 34.7 g/dl (32.0-36.5); MEAN CORPUSCULAR VOLUME 85.1 fl (80.0-96.0); MONO # 0.5 10^3/uL (0.0-0.8); MONO % 6.6 % (2.0-8.0); NEUTROPHILS # 4.5 10^3/uL (1.5-8.5); NEUTROPHILS % 65.8 % (36.0-66.0); PLATELET COUNT, AUTOMATED 254 10^3/uL (150-450); RED BLOOD COUNT 5.65 10^6/uL (4.00-5.40); WHITE BLOOD COUNT 6.8 10^3/uL (4.0-10.0)
[2024-05-23 09:57] LABS: INR 0.98; PROTHROMBIN TIME 12.7 SECONDS (12.5-14.5)
[2024-05-23 10:41] LABS: ALBUMIN 4.6 G/DL (3.2-5.2); ALKALINE PHOSPHATASE 102 U/L (46-116); ALT/SGPT 29 U/L (7.0-40); AST/SGOT 58 U/L (<34); BILIRUBIN,DIRECT 0.3 MG/DL (<0.4); CK-MB VALUE MASS < 1.0 NG/ML (<3.6); CPK CREATINE PHOSPHOKINASE 86 U/L (34-145); LIPASE 45 U/L (12-53); MB/CK RELATIVE INDEX 1.16 (< OR =4); TOTAL PROTEIN 8.3 G/DL (5.7-8.2)
[2024-05-23 10:59] LABS: AMPHETAMINES LEVEL URINE NEGATIVE (NEGATIVE); BARBITURATES URINE NEGATIVE (NEGATIVE); BENZODIAZEPINES URINE NEGATIVE (NEGATIVE); CANNABINOIDS URINE NEGATIVE (NEGATIVE); COCAINE METABOLITE URINE NEGATIVE (NEGATIVE); METHADONE URINE NEGATIVE (NEGATIVE); OPIATES URINE NEGATIVE (NEGATIVE); PHENCYCLIDINE URINE NEGATIVE (NEGATIVE)
[2024-05-23 11:00] LABS: BLOOD UREA NITROGEN 5 MG/DL (9-23); CARBON DIOXIDE LEVEL 21 MMOL/L (20-31); CHLORIDE LEVEL 104 MMOL/L (98-107); CREATININE FOR GFR 0.39 MG/DL (0.55-1.30); GLOMERULAR FILTRATION RATE > 60.0 (>51); GLUCOSE, FASTING 275 MG/DL (60-100); POTASSIUM SERUM 3.8 MMOL/L (3.5-5.1); SODIUM LEVEL 139 MMOL/L (136-145)
[2024-05-23] MEDS ORDERED: ISOVUE-370 76% 100ML VIAL As Ordered ONE (12:10)
[2024-05-23] MEDS: tiZANidine 4 MG TAB PO ONE (12:11)
[2024-05-23 14:31] VITALS: O2SAT 96
[2024-05-23 15:50] VITALS: BP 137/99
== END 2024-05-23 15:55 | disposition home or self-care (01) ==
LOC: M ED 08:46 → EDBD 08:46 → M ED 15:55
DX: R11.10 Vomiting, unspecified (principal); I44.4 Left anterior fascicular block; R16.0 Hepatomegaly, not elsewhere classified; E11.9 Type 2 diabetes mellitus without complications; I10 Essential (primary) hypertension; Z88.8 Allergy status to other drugs, medicaments and biological substances; Z88.0 Allergy status to penicillin; Z91.030 Bee allergy status; Z79.4 Long term (current) use of insulin; Z79.83 Long term (current) use of bisphosphonates; Z79.899 Other long term (current) drug therapy
CPT/HCPCS: 71045; 71275; 74177; 80048; 80076; 80307; 82550; 82553; 83690; 84484; 85025; 85610; 93005; 93041; 94760; 96361; 96374; 99285; J2765; J3360; Q9967

== ENCOUNTER 2024-06-16 11:55 | Inpatient (IN) | payer OTHER ==
[~2024-06-16] VITALS: Ht 160 cm; Wt 85.3 kg
[2024-06-16 13:09] LABS: VENOUS BASE EXCESS -9.7 (-2.0-2.0); VENOUS HCO3 15.7 MMOL/L (23.0-27.0); VENOUS O2 SATURATION 76.4 % (60.0-80.0); VENOUS PARTIAL PRESSURE CO2 34.2 mmHg (38.0-50.0); VENOUS PARTIAL PRESSURE O2 38.4 mmHg (30.0-50.0); VENOUS PH 7.281 UNITS (7.330-7.430); VENOUS STANDARD HCO3 16.5 MMOL/L; VENOUS TOTAL CO2 16.8 MMOL/L (24.0-28.0)
[2024-06-16] MEDS: NS 1,000 ML IV ONE ×4 (13:13→18:31)
[2024-06-16 13:17] LABS: BASO # 0.1 10^3/uL (0.0-0.2); BASO % 0.7 % (0.0-1.0); EOS % 0.1 % (0.0-3.0); HEMATOCRIT 51.6 % (36.0-47.0); HEMOGLOBIN 17.4 g/dl (12.0-15.5); LYMPH # 3.2 10^3/uL (1.5-5.0); MEAN CORPUSCULAR HEMOGLOBIN 30.1 pg (27.0-33.0); MEAN CORPUSCULAR HGB CONC 33.7 g/dl (32.0-36.5); MEAN CORPUSCULAR VOLUME 89.3 fl (80.0-96.0); MONO # 0.7 10^3/uL (0.0-0.8); MONO % 5.2 % (2.0-8.0); NEUTROPHILS # 9.3 10^3/uL (1.5-8.5); NEUTROPHILS % 69.6 % (36.0-66.0); PLATELET COUNT, AUTOMATED 345 10^3/uL (150-450); RED BLOOD COUNT 5.78 10^6/uL (4.00-5.40); WHITE BLOOD COUNT 13.4 10^3/uL (4.0-10.0)
[2024-06-16 13:30] LABS: HEMOGLOBIN A1c 12.2 % (4.0-6.0)
[2024-06-16 13:35] LABS: LIPASE 34 U/L (12-53)
[2024-06-16 13:37] LABS: ALBUMIN 4.4 G/DL (3.2-5.2); ALKALINE PHOSPHATASE 118 U/L (46-116); ALT/SGPT < 9 U/L (7.0-40); AST/SGOT 21 U/L (<34); BILIRUBIN,DIRECT 0.2 MG/DL (<0.4); BILIRUBIN,TOTAL 0.7 MG/DL (0.3-1.2); BLOOD UREA NITROGEN 21 MG/DL (9-23); CALCIUM LEVEL 9.3 MG/DL (8.5-10.1); CARBON DIOXIDE LEVEL 16 MMOL/L (20-31); CHLORIDE LEVEL 100 MMOL/L (98-107); CREATININE FOR GFR 0.59 MG/DL (0.55-1.30); GLOMERULAR FILTRATION RATE > 60.0 (>51); GLUCOSE, FASTING 320 MG/DL (60-100); POTASSIUM SERUM 4.7 MMOL/L (3.5-5.1); SODIUM LEVEL 132 MMOL/L (136-145); TOTAL PROTEIN 8.2 G/DL (5.7-8.2)
[2024-06-16 13:43] LABS: OSMOLALITY SERUM 314 MOSM/KG (275-295)
[2024-06-16 13:49] LABS: ACETONE/KETONE > 4.50 MMOL/L (0.02-0.27)
[2024-06-16] MEDS ORDERED: ISOVUE-370 76% 100ML VIAL As Ordered ONE (14:03)
[2024-06-16] MEDS: tiZANidine 4 MG TAB PO ONE (15:44)
[2024-06-16] MEDS: HumuLIN R (REGULAR) INSULIN (NovoLIN R) **100U/ML** PER UNIT IV ONE (15:45)
[2024-06-16] MEDS: ONDANSETRON 4MG 2ML VIAL IV ONE (16:06)
[2024-06-16 16:18] LABS: BLOOD UREA NITROGEN 18 MG/DL (9-23); CALCIUM LEVEL 8.8 MG/DL (8.5-10.1); CARBON DIOXIDE LEVEL 14 MMOL/L (20-31); CHLORIDE LEVEL 107 MMOL/L (98-107); CREATININE FOR GFR 0.48 MG/DL (0.55-1.30); GLOMERULAR FILTRATION RATE > 60.0 (>51); GLUCOSE, FASTING 262 MG/DL (60-100); POTASSIUM SERUM 3.6 MMOL/L (3.5-5.1); SODIUM LEVEL 136 MMOL/L (136-145)
[2024-06-16 16:57] LABS: ABG BASE EXCESS -9.4 (-2.0-2.0); ABG O2 SATURATION 95.4 % (95.0-99.0); ABG PARTIAL PRESSURE CO2 29.3 mmHg (35.0-45.0); ABG PARTIAL PRESSURE O2 72.4 mmHg (75.0-100.0); ABG TOTAL CO2 15.9 MMOL/L (22.0-29.0); ABG pH (ARTERIAL) 7.328 UNITS (7.350-7.450)
[2024-06-16] MEDS ORDERED: GLUCOSE 4 GM CHEW PO PRN (17:30)
[2024-06-16] MEDS ORDERED: MAALOX 30 ML SUSP *UDC PO PRN (17:30)
[2024-06-16] MEDS ORDERED: DEXTROSE 50% 50ML SYRINGE IV PRN (17:30)
[2024-06-16] MEDS ORDERED: GLUCAGON INJ 1MG VIAL SC PRN (17:30)
[2024-06-16] MEDS ORDERED: MOM 30ML SUSPENSION UDC PO PRN (17:30)
[2024-06-16 18:28] LABS: PROCALCITONIN 0.04 ng/ml
[2024-06-16] MEDS ORDERED: D5W/0.45% SODIUM CHLORIDE 1,000 ML IV SCH (18:30)
[2024-06-16] MEDS: ACETAMINOPHEN TAB 650MG DOSE (2X325MG) PO PRN (18:30)
[2024-06-16] MEDS ORDERED: ALBUTEROL SULFATE 2.5MG/0.5ML INH NEB SOLN INH PRN (18:55)
[2024-06-16] MEDS: INSULIN LISPRO (NovoLOG) PER UNIT SC SCH ×2 (18:58→21:39)
[2024-06-16] MEDS ORDERED: PROMETHAZINE 25MG/ML 1ML VIAL IV PRN (19:30)
[2024-06-16] MEDS ORDERED: METOCLOPRAMIDE INJ 10MG/2ML VIAL IV PRN (19:30)
[2024-06-16] MEDS ORDERED: AMLO25TA PO (20:14)
[2024-06-16] MEDS ORDERED: INSU100V12 SQ (20:14)
[2024-06-16] MEDS ORDERED: INSU100I24 SQ (20:14)
[2024-06-16] MEDS ORDERED: POLY510P14 PO (20:15)
[2024-06-16] MEDS ORDERED: HOME MED LIST COMPLETE! XX SCH (20:15)
[2024-06-16] MEDS: SUCRALFATE SUSP 1GM/10ML UD PO SCH (21:53)
[2024-06-16] MEDS: PANTOPRAZOLE 40MG VIAL IV SCH (21:53)
[2024-06-16] MEDS: LEVEMIR (INSULIN DETEMIR) 1 UNITS/0.01ML SC SCH (22:00)
[2024-06-16] MEDS: NS 1,000 ML IV SCH (22:00)
[2024-06-16] MEDS: DOCUSATE SODIUM 100MG CAPSULE PO SCH (22:00)
[2024-06-16 22:04] LABS: BASO # 0.1 10^3/uL (0.0-0.2); BASO % 0.8 % (0.0-1.0); EOS # 0.1 10^3/uL (0.0-0.5); EOS % 0.9 % (0.0-3.0); HEMATOCRIT 42.9 % (36.0-47.0); LYMPH # 3.5 10^3/uL (1.5-5.0); LYMPH % 33.5 % (24.0-44.0); MEAN CORPUSCULAR HEMOGLOBIN 29.8 pg (27.0-33.0); MEAN CORPUSCULAR HGB CONC 33.3 g/dl (32.0-36.5); MEAN CORPUSCULAR VOLUME 89.4 fl (80.0-96.0); MONO # 0.8 10^3/uL (0.0-0.8); MONO % 7.3 % (2.0-8.0); NEUTROPHILS % 57.1 % (36.0-66.0); PLATELET COUNT, AUTOMATED 288 10^3/uL (150-450); WHITE BLOOD COUNT 10.5 10^3/uL (4.0-10.0)
[2024-06-16 22:11] LABS: HEMOGLOBIN 14.3 g/dl (12.0-15.5)
[2024-06-16 22:30] LABS: BLOOD UREA NITROGEN 15 MG/DL (9-23); CALCIUM LEVEL 7.7 MG/DL (8.5-10.1); CARBON DIOXIDE LEVEL 19 MMOL/L (20-31); CHLORIDE LEVEL 110 MMOL/L (98-107); CREATININE FOR GFR 0.57 MG/DL (0.55-1.30); GLOMERULAR FILTRATION RATE > 60.0 (>51); GLUCOSE, FASTING 211 MG/DL (60-100); MAGNESIUM LEVEL 1.8 MG/DL (1.8-2.4); POTASSIUM SERUM 3.5 MMOL/L (3.5-5.1); SODIUM LEVEL 140 MMOL/L (136-145)
[2024-06-16] MEDS: tiZANidine 4 MG TAB PO SCH (23:36)
[2024-06-17 07:52] LABS: BASO # 0.1 10^3/uL (0.0-0.2); BASO % 0.7 % (0.0-1.0); EOS # 0.1 10^3/uL (0.0-0.5); EOS % 1.9 % (0.0-3.0); HEMATOCRIT 39.1 % (36.0-47.0); LYMPH # 2.4 10^3/uL (1.5-5.0); LYMPH % 33.5 % (24.0-44.0); MEAN CORPUSCULAR HEMOGLOBIN 29.5 pg (27.0-33.0); MEAN CORPUSCULAR HGB CONC 33.2 g/dl (32.0-36.5); MEAN CORPUSCULAR VOLUME 88.9 fl (80.0-96.0); MONO # 0.5 10^3/uL (0.0-0.8); MONO % 6.7 % (2.0-8.0); NEUTROPHILS # 4.1 10^3/uL (1.5-8.5); NEUTROPHILS % 56.5 % (36.0-66.0); PLATELET COUNT, AUTOMATED 248 10^3/uL (150-450); WHITE BLOOD COUNT 7.3 10^3/uL (4.0-10.0)
[2024-06-17 08:20] LABS: BLOOD UREA NITROGEN 11 MG/DL (9-23); CALCIUM LEVEL 8.2 MG/DL (8.5-10.1); CARBON DIOXIDE LEVEL 21 MMOL/L (20-31); CHLORIDE LEVEL 110 MMOL/L (98-107); CREATININE FOR GFR 0.46 MG/DL (0.55-1.30); GLOMERULAR FILTRATION RATE > 60.0 (>51); GLUCOSE, FASTING 255 MG/DL (60-100); MAGNESIUM LEVEL 1.8 MG/DL (1.8-2.4); POTASSIUM SERUM 3.4 MMOL/L (3.5-5.1); SODIUM LEVEL 140 MMOL/L (136-145)
[2024-06-17] MEDS ORDERED: MIRALAX *UNIT DOSE* 17GM PACKET PO PRN (08:30)
[2024-06-17] MEDS ORDERED: **SFRHE** EPINEPHrine (EPIPEN) 0.3MG/0.3ML SYRINGE INJ PRN (08:30)
[2024-06-17] MEDS: LEVEMIR (INSULIN DETEMIR) 1 UNITS/0.01ML SC SCH (08:43)
[2024-06-17] MEDS: ENOXAPARIN 40MG/0.4ML SYRINGE (J1650 PER 10MG) SC SCH (08:44)
[2024-06-17] MEDS ORDERED: LEVEMIR (INSULIN DETEMIR) 1 UNITS/0.01ML SC SCH (09:00)
[2024-06-17] MEDS: POTASSIUM CHLORIDE 10MEQ SR TABLET PO ONE (13:30)
[2024-06-17] MEDS: BETAMETHASONE VAL 0.1% CR 15 GM TOP SCH (13:35)
[2024-06-17] MEDS: ATORVASTATIN 20 MG TAB PO SCH (15:25)
[2024-06-17 15:29] VITALS: BP 99/60; TEMP 98.6; O2SAT 96
[2024-06-17] MEDS: METOCLOPRAMIDE 5 MG TAB PO SCH (16:15)
[2024-06-17 19:44] LABS: Trichomonas vaginalis (AMP) NOT DETECTED (NEGATIVE)
[2024-06-17 20:08] LABS: GC DNA AMPLIFICATION NEGATIVE (NEGATIVE)
[2024-06-17 20:13] VITALS: BP 94/58; TEMP 97.2; O2SAT 95
[2024-06-17 23:32] VITALS: BP 108/70; TEMP 97; O2SAT 99
[2024-06-17] MEDS: ONDANSETRON 4MG 2ML VIAL IV PRN (23:39)
[2024-06-18 03:07] VITALS: BP 138/70; TEMP 97.4; O2SAT 97
[2024-06-18] MEDS: NAPROXEN 250 MG TAB PO ONE (03:12)
[2024-06-18 06:31] LABS: BASO # 0.1 10^3/uL (0.0-0.2); BASO % 0.8 % (0.0-1.0); EOS # 0.2 10^3/uL (0.0-0.5); EOS % 2.8 % (0.0-3.0); HEMATOCRIT 37.5 % (36.0-47.0); HEMOGLOBIN 12.9 g/dl (12.0-15.5); LYMPH # 2.3 10^3/uL (1.5-5.0); LYMPH % 37.4 % (24.0-44.0); MEAN CORPUSCULAR HEMOGLOBIN 30.3 pg (27.0-33.0); MEAN CORPUSCULAR HGB CONC 34.4 g/dl (32.0-36.5); MONO # 0.4 10^3/uL (0.0-0.8); MONO % 7.3 % (2.0-8.0); NEUTROPHILS # 3.1 10^3/uL (1.5-8.5); NEUTROPHILS % 51.2 % (36.0-66.0); PLATELET COUNT, AUTOMATED 184 10^3/uL (150-450); RED BLOOD COUNT 4.26 10^6/uL (4.00-5.40)
[2024-06-18 06:57] LABS: BLOOD UREA NITROGEN 7 MG/DL (9-23); CALCIUM LEVEL 8.5 MG/DL (8.5-10.1); CARBON DIOXIDE LEVEL 22 MMOL/L (20-31); CHLORIDE LEVEL 111 MMOL/L (98-107); CREATININE FOR GFR 0.45 MG/DL (0.55-1.30); GLOMERULAR FILTRATION RATE > 60.0 (>51); GLUCOSE, FASTING 162 MG/DL (60-100); MAGNESIUM LEVEL 1.6 MG/DL (1.8-2.4); SODIUM LEVEL 141 MMOL/L (136-145)
[2024-06-18 08:01] VITALS: BP 121/76; O2SAT 96
[2024-06-18] MEDS: MAG SULF 1GM/100ML (MAG RUN) 1 GM in IV 1 EA IV SCH (08:05)
[2024-06-18] MEDS: POTASSIUM CHLORIDE 10MEQ SR TABLET PO ONE ×2 (08:06→09:54)
[2024-06-18 08:07] VITALS: BP 121/76
[2024-06-18] MEDS ORDERED: CARA1TAB6 PO (09:54)
[2024-06-18] MEDS ORDERED: PANT-23 PO (09:54)
[2024-06-18] MEDS: FLUCONAZOLE 50MG TABLET PO ONE (09:54)
[2024-06-18] MEDS ORDERED: REGL5TAB2 PO (09:54)
[2024-06-18] MEDS ORDERED: POTA-151 PO (14:08)
[2024-06-18 16:00] VITALS: BP 132/72; O2SAT 91
== END 2024-06-18 17:03 | disposition home or self-care (01) | DRG 48 ==
LOC: M ED 11:55 → EDBD 11:55 → M ED INP 17:30 → M PCU 06-17 15:25
PROVIDERS: ADMIT Internal Medicine; ATTEND Internal Medicine
DX: E11.43 Type 2 diabetes mellitus with diabetic autonomic (poly)neuropathy (principal); D75.1 Secondary polycythemia; K76.0 Fatty (change of) liver, not elsewhere classified; E66.9 Obesity, unspecified; E86.0 Dehydration; G89.29 Other chronic pain; I10 Essential (primary) hypertension; K21.9 Gastro-esophageal reflux disease without esophagitis; K31.84 Gastroparesis; K52.9 Noninfective gastroenteritis and colitis, unspecified; Z68.34 Body mass index [BMI] 34.0-34.9, adult; E11.319 Type 2 diabetes mellitus with unspecified diabetic retinopathy without macular edema; E11.10 Type 2 diabetes mellitus with ketoacidosis without coma; E87.6 Hypokalemia; M54.59 Other low back pain; G43.909 Migraine, unspecified, not intractable, without status migrainosus; Z88.0 Allergy status to penicillin; Z91.030 Bee allergy status; Z88.8 Allergy status to other drugs, medicaments and biological substances; Z79.899 Other long term (current) drug therapy; Z79.4 Long term (current) use of insulin

== ENCOUNTER → 2024-10-09 | Outpatient (REF) | payer OTHER, MEDICAID ==
[~2024-10-09] MED LIST changes: +CARA1TAB6 PO; +FLUO-365 PO; +INSU100I24 SQ; +INSU100V12 SQ; +METO5TAB2 PO; +PANT-23 PO; +POLY510P14 PO; +POTA-151 PO; +SUCR1TAB56 PO
== END ==
LOC: M LAB REF 16:15
PROVIDERS: ATTEND Nurse Practitioner Adult Health
DX: M54.50 Low back pain, unspecified (principal)

== ENCOUNTER → 2024-10-25 | Outpatient (REF) | payer OTHER ==
[2024-10-25 13:31] LABS: APPEARANCE, URINE HAZY (CLEAR); BACTERIA, URINE AUTO 1+ (NEGATIVE); BILIRUBIN, URINE AUTO NEGATIVE (NEGATIVE); BLOOD, URINE BLOOD 2+ (NEGATIVE); COLOR, URINE YELLOW (YELLOW); GLUCOSE, URINE (UA) AUTO 3+ mg/dL (NEGATIVE); KETONE, URINE AUTO TRACE mg/dL (NEGATIVE); LEUKOCYTE ESTERASE, URINE AUTO 3+ (NEGATIVE); MUCUS, URINE SMALL (NEGATIVE); NITRITE, URINE AUTO NEGATIVE (NEGATIVE); PROTEIN, URINE AUTO NEGATIVE (NEGATIVE); RBC, URINE AUTO 7 /HPF (0-3); SPECIFIC GRAVITY URINE AUTO 1.031 (1.002-1.035); SQUAMOUS EPITHELIAL CELL UR AU 5 /HPF (0-6); UROBILINOGEN, URINE AUTO 0.2 mg/dL (0.0-2.0); WBC, URINE AUTO 32 /HPF (0-3)
== END ==
LOC: EEVIPCON 10:53 → M LAB REF 10:53
PROVIDERS: ATTEND Physician Assistant Medical
DX: L02.416 Cutaneous abscess of left lower limb (principal)

== ENCOUNTER → 2024-11-05 | Outpatient (REF) | payer OTHER | LOC: M LAB REF 13:13 | PROVIDERS: ATTEND Nurse Practitioner Adult Health | DX: L03.90 Cellulitis, unspecified (principal); N39.0 Urinary tract infection, site not specified ==

== ENCOUNTER → 2024-11-27 | Outpatient (REF) | payer OTHER | LOC: M LAB REF 16:26 | PROVIDERS: ATTEND Nurse Practitioner Adult Health | DX: A49.02 Methicillin resistant Staphylococcus aureus infection, unspecified site (principal) ==

== ENCOUNTER → 2025-05-13 | Outpatient (REF) | payer OTHER ==
[~2025-05-13] MED LIST changes: +AMIT10TA11 PO; -AMIT10TA7 PO
== END ==
LOC: M LAB REF 17:20
PROVIDERS: ATTEND Nurse Practitioner Adult Health
DX: N39.0 Urinary tract infection, site not specified (principal)

== ENCOUNTER → 2025-06-16 | Outpatient (REF) | payer OTHER ==
[~2025-06-16] MED LIST changes: -IBUP-1022 PO; +IBUP600T42 PO
== END ==
LOC: M LAB REF 17:32
PROVIDERS: ATTEND Nurse Practitioner Adult Health
DX: E78.00 Pure hypercholesterolemia, unspecified (principal)

== ENCOUNTER → 2025-06-17 | Outpatient (CLI) | payer OTHER | LOC: M WHC 13:39 | PROVIDERS: ATTEND Nurse Practitioner Adult Health | DX: Z12.31 Encounter for screening mammogram for malignant neoplasm of breast (principal) ==

== ENCOUNTER → 2025-06-24 | Outpatient (CLI) | payer OTHER | LOC: M RAD 07:48 | PROVIDERS: ATTEND Otolaryngology | DX: K11.20 Sialoadenitis, unspecified (principal) ==

== ENCOUNTER 2025-09-28 07:01 | Emergency (ER) | payer OTHER ==
[~2025-09-28] VITALS: Ht 162.6 cm; Wt 95.1 kg
[2025-09-28 07:38] LABS: VENOUS BASE EXCESS -2.1 (-2.0-2.0); VENOUS HCO3 19.7 MMOL/L (23.0-27.0); VENOUS O2 SATURATION 98.9 % (60.0-80.0); VENOUS PARTIAL PRESSURE CO2 27.3 mmHg (38.0-50.0); VENOUS PARTIAL PRESSURE O2 144.1 mmHg (30.0-50.0); VENOUS PH 7.477 UNITS (7.330-7.430); VENOUS STANDARD HCO3 22.7 MMOL/L; VENOUS TOTAL CO2 20.6 MMOL/L (24.0-28.0)
[2025-09-28 07:38] LABS: BASO # 0.1 10^3/uL (0.0-0.2); BASO % 0.3 % (0.0-1.0); EOS # 0.0 10^3/uL (0.0-0.5); EOS % 0.1 % (0.0-3.0); LYMPH # 2.4 10^3/uL (1.5-5.0); LYMPH % 16.3 % (24.0-44.0); MONO # 0.6 10^3/uL (0.0-0.8); MONO % 4.1 % (2.0-8.0); NEUTROPHILS # 11.5 10^3/uL (1.5-8.5); NEUTROPHILS % 78.6 % (36.0-66.0); PLATELET COUNT, AUTOMATED 419 10^3/uL (150-450)
[2025-09-28 08:50] LABS: KETONE, URINE AUTO RFX 2+ mg/dL (NEGATIVE); LEUKOCYTE ESTERASE UR AUTO RFX NEGATIVE (NEGATIVE); MUCUS, URINE RFX SMALL (NEGATIVE); NITRITE, URINE AUTO RFX NEGATIVE (NEGATIVE); RBC, URINE AUTO RFX 2 /HPF (0-3); SQUAM EPITHELIAL CELL UR AURFX 1 /HPF (0-6); WBC, URINE AUTO RFX 8 /HPF (0-3)
[2025-09-28] MEDS: diphenhydrAMINE 50 MG/ML VIAL IV ONE (09:01)
[2025-09-28 09:05] LABS: CALCIUM LEVEL 10.1 MG/DL (8.5-10.1); CARBON DIOXIDE LEVEL 19 MMOL/L (20-31); CHLORIDE LEVEL 100 MMOL/L (98-107); CK-MB VALUE MASS 2.2 NG/ML (<3.6); CPK CREATINE PHOSPHOKINASE 161 U/L (34-145); CREATININE FOR GFR 0.60 MG/DL (0.55-1.30); GLOMERULAR FILTRATION RATE > 90.0 (>51); MB/CK RELATIVE INDEX 1.36 (< OR =4); POTASSIUM SERUM 4.0 MMOL/L (3.5-5.1); SODIUM LEVEL 138 MMOL/L (136-145)
[2025-09-28 13:21] LABS: ACETONE/KETONE 2.94 MMOL/L (0.02-0.27)
[2025-09-28 13:43] LABS: CALCIUM LEVEL 10.1 MG/DL (8.5-10.1); CARBON DIOXIDE LEVEL 23 MMOL/L (20-31); CHLORIDE LEVEL 102 MMOL/L (98-107); CREATININE FOR GFR 0.60 MG/DL (0.55-1.30); GLOMERULAR FILTRATION RATE > 90.0 (>51); POTASSIUM SERUM 4.2 MMOL/L (3.5-5.1); SODIUM LEVEL 140 MMOL/L (136-145)
[2025-09-28 14:01] VITALS: BP 138/60; TEMP 99.2
[2025-09-28 14:15] VITALS: O2SAT 94
== END 2025-09-28 14:29 | disposition home or self-care (01) ==
LOC: EDBD 07:01 → M ED 07:01
DX: K31.84 Gastroparesis (principal); G89.4 Chronic pain syndrome; R00.0 Tachycardia, unspecified; I25.2 Old myocardial infarction; I45.81 Long QT syndrome; E11.9 Type 2 diabetes mellitus without complications; I10 Essential (primary) hypertension; E78.5 Hyperlipidemia, unspecified; Z88.0 Allergy status to penicillin; Z88.8 Allergy status to other drugs, medicaments and biological substances; Z91.030 Bee allergy status; Z79.1 Long term (current) use of non-steroidal anti-inflammatories (NSAID); Z79.51 Long term (current) use of inhaled steroids; Z79.4 Long term (current) use of insulin; Z79.899 Other long term (current) drug therapy
CPT/HCPCS: 71045; 80047; 80048; 81001; 82010; 82550; 82553; 82803; 84484; 85025; 87486; 87581; 87633; 87798; 93005; 93041; 94760; 96374; 99285; J1200; J2060; J2765